=== PATIENT | female | born 1985 | race Caucasian/White ===

== ENCOUNTER 2020-12-16 18:56 | Emergency (ER) | payer OTHER, SELFPAY ==
--- NOTE | 2020-12-16 | ECG_ITS ---
Test Reason : BACK PAIN Blood Pressure : / mmHG Vent. Rate : 075 BPM Atrial Rate : 075 BPM P-R Int : 160 ms QRS Dur : 072 ms QT Int : 410 ms P-R-T Axes : -06 017 030 degrees QTc Int : 457 ms Normal sinus rhythm Normal ECG When compared with ECG of 08-MAR-2019 12:40, No significant change was found Referred By: Generic ED Physician Electronically Signed By:TIFFANIE VAIL
[2020-12-16 19:00] VITALS: BP 132/80; PULSE 80; RESP 18; TEMP 36.9; O2SAT 98; BMI 27.4
== END 2020-12-16 21:01 | disposition left against medical advice (07) ==
PROVIDERS: Emergency Provider Emergency Medicine; PCP Internal Medicine
DX: R07.9 Chest pain, unspecified (principal)
CPT/HCPCS: 93005; 99283

== ENCOUNTER 2021-11-20 07:43 | Outpatient (REF) | payer OTHER, SELFPAY ==
--- NOTE | ~2021-11-20 | XR_ITS ---
EXAMINATION: XR FINGER, RIGHT CLINICAL INFORMATION: Pain COMPARISON: None TECHNIQUE: Three views of the right second finger. FINDINGS: The bones and soft tissues are normal. No fracture. Alignment is anatomic. Joint spaces are maintained. XR/XR finger RT min 2V IMPRESSION: Normal finger radiographs.
[2021-11-20 07:55] LABS: MANUAL DIFF FLAG NO
[2021-11-20 08:16] LABS: Basophils Percent Auto 0.5 % (0-2); Eosinophils Absolute Auto 0.3 X10*3/uL (0.0-0.4); Eosinophils Percent Auto 3.9 % (0-4); Hematocrit 43.7 % (37.0-47.0); Hemoglobin 14.7 g/dl (12.0-16.0); Imm Gran Abs Auto 0.02 X10*3/uL (0.00-0.03); Imm Gran Pct Auto 0.2 % (0.0-0.4); Lymphocytes Absolute Auto 2.5 X10*3/uL (1.2-4.9); Lymphocytes Percent Auto 30.5 % (20-40); Mean Corpuscular HGB Conc 33.6 g/dl (31.0-35.0); Mean Corpuscular Hemoglobin 30.5 pg (27.0-33.0); Mean Corpuscular Volume 90.7 fL (80.0-98.0); Mean Platelet Volume 11.3 fL (9.4-12.3); Monocytes Absolute Auto 0.6 X10*3/uL (0.1-1.2); Monocytes Percent Auto 7.1 % (2-11); Neutrophils Absolute Auto 4.7 x10*3/uL (2.0-8.3); Neutrophils Percent Auto 57.8 % (45-73); Platelet Count 270 X10*3/uL (160-400); Red Blood Count 4.82 X10*6/uL (4.20-5.50); Red Cell Distribution Width 12.3 % (11.0-16.0); White Blood Count 8.2 X10*3/uL (4.8-10.8)
[2021-11-20 08:51] LABS: Alanine Aminotransferase 11 U/L (0-31); Albumin Level 4.3 g/dL (3.5-5.0); Alkaline Phosphatase 57 U/L (39-117); Anion Gap 11 (12-20); Aspartate Amino Transferase 17 U/L (5-31); Bilirubin Total 0.5 mg/dL (0.0-1.0); Blood Urea Nitrogen 11 mg/dL (9-16); Calcium 9.4 mg/dL (8.4-10.2); Carbon Dioxide 24 mmol/L (22-29); Chloride 110 mmol/L (96-108); Cholesterol 191 mg/dL; Estimated Glomerular Filt Rate > 60; Glucose Fasting 91 mg/dL (60-99); HDL Cholesterol 50 mg/dL; LDL Cholesterol Calculated 114 mg/dl; Potassium 4.5 mmol/L (3.3-5.1); Sodium 140 mmol/L (135-145); Total Protein 7.1 g/dL (6.5-8.0); Triglycerides 137 mg/dL
[2021-11-20 09:03] LABS: TSH reflex Free T4 0.86 uIU/mL (0.32-4.0)
== END 2021-11-20 07:44 | disposition home or self-care (01) ==
LOC: HO.LAB 07:43
PROVIDERS: PCP Internal Medicine; Visit Provider Nurse Practitioner Family
DX: Z00.00 Encounter for general adult medical examination without abnormal findings (principal); M79.644 Pain in right finger(s); E66.3 Overweight; I10 Essential (primary) hypertension; E78.00 Pure hypercholesterolemia, unspecified
CPT/HCPCS: 36415; 73140; 80053; 80061; 84443; 85025

== ENCOUNTER 2022-08-01 09:20 | Emergency (ER) | payer OTHER, SELFPAY ==
--- NOTE | 2022-08-01 | ECG_ITS ---
Test Reason : asthma Blood Pressure : / mmHG Vent. Rate : 099 BPM Atrial Rate : 099 BPM P-R Int : 142 ms QRS Dur : 068 ms QT Int : 362 ms P-R-T Axes : 079 061 011 degrees QTc Int : 464 ms Normal sinus rhythm Normal ECG When compared with ECG of 16-DEC-2020 19:13, No significant change was found Referred By: Generic ED Physician Electronically Signed By:David Jordan
--- NOTE | ~2022-08-01 | XR_ITS ---
EXAMINATION: XR CHEST CLINICAL INFORMATION: Shortness of breath. COMPARISON: Chest radiograph 03/08/2019. TECHNIQUE: 2 views of the chest were obtained. FINDINGS: No significant abnormality is noted involving the heart, lungs, mediastinum, bony thorax or soft tissues. XR/XR chest 2V IMPRESSION: Unremarkable examination.
[2022-08-01 09:23] VITALS: BP 132/86; PULSE 117; RESP 22; TEMP 36; O2SAT 98; BMI 28.5
--- NOTE | 2022-08-01 09:56 | ED.GENADULT ---
HPI - General Adult General Chief complaint: Dyspnea Stated complaint: Asthma Time Seen by Provider: 08/01/22 09:54 Source: patient Mode of arrival: ambulatory Limitations: no limitations History of Present Illness HPI narrative: Patient is a 36 year old assigned female at with a history of asthma presenting to the emergency department today with wheezing and sinus congestion. Patient states that over the last week she has felt generally unwell with increased wheezing and sinus pressure / congestion. Patient states that she has a history of asthma but does not currently have any inhalers at home. Patient denies any dizziness, lightheadedness, abdominal pain, nausea, vomiting, fever, chills, blurry vision, double vision, loss of vision, chest pain, difficulty breathing, shortness of breath, back pain, night sweats, pain with urination, increased urinary frequency, increased urinary urgency, blood in her urine or stool, syncope or a near syncopal episode, recent trauma or falls, bowel incontinence, bladder incontinence, bowel retention, bladder retention, or any other complaints at this time. Onset (ago): week(s) (1) Severity: mild Severity scale (1-10): 2 Relieving factors: none Exacerbating factors: none Treatments prior to arrival: none Related Data Previous Rx's Medication Instructions Recorded magnesium 200 mg tablet 200 mg PO DAILY #30 tabs 11/18/21 riboflavin (vitamin B2) 400 mg 400 mg PO DAILY #30 tabs 11/18/21 tablet simethicone 80 mg chewable tablet 80 mg PO BID-TID PRN abdominal 11/18/21 (Gas Relief 80 (simethicone)) distention #20 tabs albuterol sulfate 90 mcg/actuation 1 inh inhalation QID PRN shortness 08/01/22 aerosol inhaler of breath or wheezing #8.5 grams doxycycline hyclate 100 mg tablet 100 mg PO BID 7 days #14 tabs 08/01/22 prednisone 20 mg tablet 20 mg PO DAILY 7 days #7 tabs 08/01/22 Allergies Allergy/AdvReac Type Severity Reaction Status Date / Time No Known Allergies Allergy Verified 11/18/21 15:13 [No Known Allergies*] Review of Systems Constitutional: Constitutional: Reports no additional constitutional complaints, Denies chills, Denies fever(s) and Denies night sweats Eyes: Eyes: Reports no additional eye complaints, Denies blurry vision, Denies change in vision, Denies diplopia, Denies eye discharge, Denies loss of vision and Denies eye pain ENT: Denies dizziness Comments: sinus congestion / pressure Cardiovascular: Cardiovascular: Reports no additional cardiovascular complaints, Denies chest pain, Denies lightheadedness, Denies Loss of Consciousness and Denies dyspnea Respiratory: Respiratory: Reports no additional respiratory complaints, Denies dyspnea and Reports wheezing Gastrointestinal: Gastrointestinal: Reports no additional gastrointestinal complaints, Denies abdominal pain, Denies melena, Denies hematochezia, Denies change in bowel habits and Denies change in stool character Genitourinary: Genitourinary: Denies hematuria, Denies urinary frequency, Denies dysuria, Denies urinary incontinence, Denies urinary hesitancy and Denies urinary urgency Musculoskeletal: Musculoskeletal: Reports no additional musculoskeletal complaints, Denies numbness and Denies tingling Neurologic: Denies dizziness, Denies loss of vision, Denies numbness and Denies tingling Psychiatric: Psychiatric: Reports no additional psychiatric complaints Endocrine: Endocrine: Reports no additional endocrine complaints Hematologic/Lymphatic: Hematologic/Lymphatic: Reports no additional hematologic/lymphatic complaints Allergic/Immunologic: Allergic/Immunologic: Reports no additional allergic/immunologic complaints and Reports wheezing PMFSH Past Medical History Attestation statement: The following information was validated with the patient. Source: old records reviewed and nursing notes reviewed Medical History Abdominal gas pain Hyperhidrosis Mild asthma Overweight Surgical History No pertinent past surgical history Family History Family History Mother Diabetes Stroke Father Thyroid disease Social History Social History Housing: Apartment Alcohol intake: never Patient Tobacco Use Status: Current everyday Tobacco user Tobacco use type: Cigarette Cigarettes Per Day: 10 e-Cigarette/Vaping Use: Never Used Second Hand Smoke Exposure: No Advance Directives: No Advance Directives Information Provided: No service: No Current occupational status: employed Current occupational exposures/hazards: No Cognitive needs: No Hearing needs: No Vision needs: No Physical Exam ED Vital Signs: Vital Signs - 24 hr 08/01/22 09:23 Temperature 96.8 F Pulse Rate 117 H Respiratory Rate 22 H Blood Pressure 132/86 Pulse Oximetry 98 Oxygen Delivery Method Room Air BMI result Body Mass Index 28.5 Const General: cooperative, no acute distress, alert and awake Nutritional Appearance: well nourished Orientation/consciousness: patient oriented x3 Limitations: no limitations HENMT Head: Yes normal to inspection and Yes atraumatic Ears: hearing grossly normal bilaterally and external ears normal General nose exam: Normal external nose present, no nasal discharge noted and no epistaxis Face and sinus: Yes normal facial exam, No abrasion and No laceration Mouth: Normal oral and palatal mucosa present, no drooling and no muffled voice Eyes General: appearance normal, both eyes and all related structures Periorbital: periorbital findings normal Eyelids: Yes eyelids normal Conjunctivae: conjunctivae normal Pupils: Equal, round and reactive pupils present EOM: EOMs intact bilaterally Neck Neck: Yes normal visual inspection, Yes full ROM and Yes no lymphadenopathy Chest Chest palpation & inspection: normal inspection of the chest Resp Effort & Inspection: normal respiratory effort and able to speak in complete sentences Auscultation: wheezes throughout Cardio Rate: tachycardic Rhythm: regular rhythm GI Inspection: Yes normal to inspection Palpation (GI): Soft to palpation, not firm, nontender, no guarding and not rigid Neuro General: patient oriented x3 and moves all extremities Cranial nerves: Yes Equal, round and reactive pupils present Cognition (Neuro): normal cognition Motor exam (neuro): 5/5 motor strength present throughout Sensory Exam: Normal double simultaneous stimulation for sensation Coordination: alybig-gk-oklw test normal Extrem General: Yes normal to inspection, Yes full ROM and Yes capillary refill normal Psych Appearance: grossly normal Mental Status: mental status grossly normal Affect: normal affect Attitude: cooperative Thought process: Normal thought process present Thought content: Normal thought content present Insight: Good insight present (Psych) Medications Administered Discontinued Medications Generic Name Dose Route Start Last Admin Trade Name Freq PRN Reason Stop Dose Admin Albuterol Sulfate 7.5 mg/ 0 mg 08/01/22 09:56 08/01/22 10:12 Ipratropium [place] 0.5 mg INHALE 08/01/22 09:57 2.5 each ONCE ONE Administration Methylprednisolone Sodium Succinate 60 mg 08/01/22 09:56 08/01/22 10:49 Methylprednisolone Sod Succ 125 Mg/2 Ml Vial IM 08/01/22 09:57 60 mg ONCE ONE Administration Medical Decision Making Medical Decision Making MDM Narrative: Patient is a 36 year old assigned female at with a history of asthma presenting to the emergency department today with nasal congestion / sinus pain and wheezing. Patient's physical exam showed wheezing throughout and sinus pressure. Patient's chest x-ray showed no acute process. I explained my physical exam findings as well as all test results to the patient. I answered all questions asked by the patient. Patient received IM Solu-Medrol and a breathing treatment which she stated helped her symptoms significantly. I stressed the importance of the patient taking her medication as prescribed. I stressed the importance of the patient following up with her primary care provider. I stressed the importance of the patient returning to the emergency department immediately if her symptoms were to worsen or if she were to develop any dizziness, shortness of breath, difficulty breathing, chest pain, blurry vision, loss of vision, nausea, vomiting, abdominal pain, fever, chills, back pain, or any other complaints. Patient verbalized agreement and understanding with this treatment plan and discharge. Differential Diagnosis Differential Diagnoses: The differential diagnosis associated with the presentation includes sinusitis, asthma exacerbation Lab Data Labs: Lab Results 08/01/22 Range/Units 09:30 Influenza Type A (PCR) NEGATIVE (Negative) Influenza Type B (PCR) NEGATIVE (Negative) RSV RNA Qual (PCR) NEGATIVE (Negative) SARS-CoV-2 RNA (RT-PCR) NEGATIVE (Negative) Independent Interpretation I performed an independent interpretation of an: Plain X-Ray Interpretation: My interpretation is in agreement with the radiologist's impression of this imaging study. EXAMINATION: XR CHEST CLINICAL INFORMATION: Shortness of breath. COMPARISON: Chest radiograph 03/08/2019. TECHNIQUE: 2 views of the chest were obtained. FINDINGS: No significant abnormality is noted involving the heart, lungs, mediastinum, bony thorax or soft tissues. XR/XR chest 2V IMPRESSION: Unremarkable examination. Dictated By: Jayla Saldivar Signed By: Electronically signed by Jayla?Janna 08/01/22 0953 Discharge Plan Discharge Clinical Impression: Asthma, Sinusitis Patient Disposition: Home, Self-Care Instructions: Asthma (ED), Sinusitis (ED) Additional Instructions: Follow up with your primary care provider. Return to the emergency department immediately if your symptoms worsen or if you develop any dizziness, shortness of breath, difficulty breathing, chest pain, blurry vision, loss of vision, nausea, vomiting, abdominal pain, fever, chills, back pain, or any other complaints. Prescriptions: New prednisone 20 mg tablet 20 mg PO DAILY 7 Days Qty: 7 0RF doxycycline hyclate 100 mg tablet 100 mg PO BID 7 Days Qty: 14 0RF albuterol sulfate 90 mcg/actuation HFA aerosol inhaler 1 inh inhalation QID PRN (Reason: shortness of breath or wheezing) Qty: 8.5 0RF No Action simethicone [Gas Relief 80 (simethicone)] 80 mg tablet,chewable 80 mg PO BID-TID PRN (Reason: abdominal distention) Qty: 20 0RF magnesium 200 mg tablet 200 mg PO DAILY Qty: 30 0RF riboflavin (vitamin B2) 400 mg tablet 400 mg PO DAILY Qty: 30 0RF Referrals: Cassie Hardwick MD [Primary Care Provider] - Stand Alone Forms: Work/School Release Interventions: ED Discharge Assessment Last Done: 08/01/22 11:14 Discharge Date/Time: 08/01/22 11:16 Print Language: Kittitian
[2022-08-01 10:14] LABS: Influenza A PCR NEGATIVE (Negative); Influenza B PCR NEGATIVE (Negative); Resp Syncy Virus RNA Qual PCR NEGATIVE (Negative); SARS COV2 PCR INHOUSE NEGATIVE (Negative)
--- OUTSIDE RECORDS SUMMARY | 2022-08-01 10:35 | XMS_ITS | Continuity of Care Document ---
:1985 Author Organization [facility] Address [address] [place] [address]- Care Team Providers Name Role Phone Connor Ge MD, Cindy Rudd Primary Care Physician Encounter [facility] [place] Date(s): 05/12/20 - 06/11/20 [facility] [address], [place] [address] Attending Physician: Fernandez Renee Admitting Physician: Fernandez Renee Referring Physician: AdmtrFernandez Allergies, Adverse Reactions, Alerts Substance Reaction Severity Status NKA Active Immunizations Given and Recorded Vaccine Date Status Refusal Reason Hepatitis B Vaccine (old term)1 01/13/04 Given Hepatitis B Vaccine (old term)2 07/28/00 Given Measles/Mumps/Rubella Virus Vaccine3 07/28/00 Given Measles/Mumps/Rubella Virus Vaccine4 09/13/89 Given tetanus-diphtheria toxoids (Td)5 06/10/99 Given Poliovirus Vaccine, Inactivated6 04/02/93 Given Poliovirus Vaccine, Inactivated7 09/13/89 Given Poliovirus Vaccine, Inactivated8 04/15/88 Given Poliovirus Vaccine, Inactivated9 02/01/88 Given Diphth/Pertussis, Whl Cell/Tet(oldterm)10 04/02/93 Given Diphth/Pertussis, Whl Cell/Tet(oldterm)11 09/13/89 Given Diphth/Pertussis, Whl Cell/Tet(oldterm)12 10/05/88 Given Diphth/Pertussis, Whl Cell/Tet(oldterm)13 04/15/88 Given Diphth/Pertussis, Whl Cell/Tet(oldterm)14 02/01/88 Given Haemophilus B Conj Vaccine (oldterm)15 07/16/89 Given 1Admin Note: HEP J4Wicia Note: HEP A6Xlvgw Note: JRK4Mrczn Note: ABP0Qgiil Note: RT8Zutnf Note: IPV/XWT3Tqoed Note: IPV/YOW0Ihrbq Note: IPV/QAU6Wblcl Note: IPV/QWF66Krcuk Note: MCO88Hnkqp Note: CKP55Stnbc Note: CIT36Vkiub Note: DTP14 Admin Note: ATL22Nkkyw Note: HIB Medications Amoxicillin By Mouth, Maintenance, 12/24/13 12:42:08 Start Date: 12/24/13 Status: OrderedAzithromycin 5 Day Dose Pack 250 mg oral tablet 1 pack/packet, By Mouth, Once, # 6 tablet, 0 Refills, Soft Stop, 02/07/14 11:09:23, Tablet Start Date: 02/07/14 Status: Ordereddiclofenac sodium 100 mg oral tablet, extended release 1 tablet = 100 mg, By Mouth, Daily, # 14 tablet, 0 Refills, Maintenance, 05/12/20 12:36:00 EST, ER Tablet, [facility]/pharmacy #[id number], Partial fill upon patient request if the prescription is for a schedule IIopioid drug., 168, cm, 05/12/20 12:21:00 EST, Hei... Start Date: 05/12/20 Stop Date: 05/26/20 Status: Ordered Problem List No Known Problems
--- OUTSIDE RECORDS SUMMARY | 2022-08-01 10:35 | XMS_ITS | Continuity of Care Document ---
:1985 Author Organization [facility] Address [address] [place] [address]- Care Team Providers Name Role Phone Connor Ge MD, Cindy Rudd Primary Care Physician Encounter [facility] [place] Date(s): 05/12/20 - 05/19/20 [facility] [address] [place], [place] [address] Attending Physician: Shana Fitzpatrick MD Referring Physician: Cindy Hardwick MD Allergies, Adverse Reactions, Alerts Substance Reaction Severity [...] Vaccine (oldterm)15 07/16/89 Given 1Admin Note: HEP H6Oqmaw Note: HEP P6Xedsh Note: FTG3Uzfcn Note: TRF4Pvyck Note: ON2Npsyl Note: IPV/RHJ9Ytgzv Note: IPV/UYX1Fjvrh Note: IPV/QSN7Wjoqa Note: IPV/KKV69Fzzbq Note: YLH27Orucc Note: QWZ94Ogtfe Note: YMB40Mgeey Note: DTP14 Admin Note: QMV67Imhyq Note: HIB Medications Amoxicillin By Mouth, Maintenance, [...] Refills, Maintenance, 05/12/20 12:36:00 EST, ER Tablet, [facility]/pharmacy #[id number], Partial fill upon patient request if the prescription is for a schedule IIopioid drug., 168, cm, 05/12/20 12:21:00 EST, Hei... Start Date: 05/12/20 Stop Date: 05/26/20 Status: Ordered Problem List No Known Problems Vital Signs Most recent to oldest [Reference Range]: 1 Height 168 cm (05/12/20 12:21 PM) Weight 77.7 kg (05/12/20 12:21 PM) Oxygen Saturation [94-100 %] 100 % (05/12/20 12: PM) Pulse Rate [55-90 bpm] 76 bpm (05/12/20 12:21 PM) Body Mass Index [18.5-24.99] 27.53 *H* (05/12/20 12: PM) Blood Pressure [90-138/55-84 mm Hg] 116/63 mm Hg (05/12/20 12:21 PM) Respiratory Rate [16-30 br/min] 16 br/min (05/12/20 12:21 PM) Temperature [96.8-100.4 DegF] 97.5 DegF (05/12/20 12: PM) Mode of Delivery (Oxygen) Room air (05/12/20 12:21 PM) Blood pressure sites Arm, right (05/12/20 12:21 PM) Temperature Route Temporal (05/12/20 12:21 PM) Dry Weight 77.7 kg (05/12/20 12:21 PM) Weight Obtained Via Standing scale (05/12/20 12:21 PM) Dry Weight Obtained Via Standing scale (05/12/20 12:21 PM)
[2022-08-01] MEDS: methylPREDNISolone Sod Succ 125 MG/2 ML VIAL 60 MG IM (10:49)
== END 2022-08-01 11:16 | disposition home or self-care (01) ==
PROVIDERS: Emergency Provider Student in an Organized Health Care Education/Training Program; PCP Internal Medicine
DX: J45.909 Unspecified asthma, uncomplicated (principal); R06.02 Shortness of breath; R09.81 Nasal congestion; F17.210 Nicotine dependence, cigarettes, uncomplicated; Z20.822 Contact with and (suspected) exposure to COVID-19; Z20.828 Contact with and (suspected) exposure to other viral communicable diseases; Z71.6 Tobacco abuse counseling; Z79.899 Other long term (current) drug therapy
CPT/HCPCS: 0241U; 71046; 93005; 96372; 99283; 99284; J2930

== ENCOUNTER 2022-08-10 11:25 | Outpatient (REF) | payer OTHER, SELFPAY ==
[2022-08-10 11:33] LABS: MANUAL DIFF FLAG NO
[2022-08-10 12:28] LABS: Basophils Percent Auto 0.3 % (0-2); Eosinophils Absolute Auto 0.1 X10*3/uL (0.0-0.4); Eosinophils Percent Auto 0.8 % (0-4); Hematocrit 46.5 % (37.0-47.0); Hemoglobin 15.4 g/dl (12.0-16.0); Imm Gran Abs Auto 0.07 X10*3/uL (0.00-0.03); Imm Gran Pct Auto 0.4 % (0.0-0.4); Lymphocytes Absolute Auto 4.2 X10*3/uL (1.2-4.9); Mean Corpuscular HGB Conc 33.1 g/dl (31.0-35.0); Mean Corpuscular Hemoglobin 29.7 pg (27.0-33.0); Mean Corpuscular Volume 89.6 fL (80.0-98.0); Mean Platelet Volume 11.1 fL (9.4-12.3); Monocytes Absolute Auto 1.1 X10*3/uL (0.1-1.2); Monocytes Percent Auto 7.3 % (2-11); Neutrophils Percent Auto 64.2 % (45-73); Platelet Count 335 X10*3/uL (160-400); Red Blood Count 5.19 X10*6/uL (4.20-5.50); Red Cell Distribution Width 12.4 % (11.0-16.0); White Blood Count 15.6 X10*3/uL (4.8-10.8)
[2022-08-12 01:54] LABS: Immunoglobulin E 1073 kU/L (<OR=114)
== END 2022-08-10 11:26 | disposition home or self-care (01) ==
LOC: HO.LAB 11:25
PROVIDERS: PCP Internal Medicine; Visit Provider Internal Medicine
DX: D64.9 Anemia, unspecified (principal); Z88.9 Allergy status to unspecified drugs, medicaments and biological substances
CPT/HCPCS: 36415; 82785; 85025; 86003

== ENCOUNTER 2022-08-17 08:41 | Outpatient (REF) | payer OTHER, SELFPAY ==
[2022-08-17 08:58] LABS: MANUAL DIFF FLAG NO
[2022-08-17 09:23] LABS: Basophils Percent Auto 0.3 % (0-2); Eosinophils Absolute Auto 0.2 X10*3/uL (0.0-0.4); Eosinophils Percent Auto 2.3 % (0-4); Hematocrit 43.3 % (37.0-47.0); Hemoglobin 14.6 g/dl (12.0-16.0); Imm Gran Abs Auto 0.02 X10*3/uL (0.00-0.03); Imm Gran Pct Auto 0.2 % (0.0-0.4); Lymphocytes Absolute Auto 2.1 X10*3/uL (1.2-4.9); Lymphocytes Percent Auto 23.9 % (20-40); Mean Corpuscular HGB Conc 33.7 g/dl (31.0-35.0); Mean Corpuscular Hemoglobin 30.4 pg (27.0-33.0); Mean Platelet Volume 11.6 fL (9.4-12.3); Monocytes Absolute Auto 0.7 X10*3/uL (0.1-1.2); Monocytes Percent Auto 8.6 % (2-11); Neutrophils Absolute Auto 5.6 x10*3/uL (2.0-8.3); Neutrophils Percent Auto 64.7 % (45-73); Platelet Count 243 X10*3/uL (160-400); Red Blood Count 4.81 X10*6/uL (4.20-5.50); Red Cell Distribution Width 12.6 % (11.0-16.0); White Blood Count 8.6 X10*3/uL (4.8-10.8)
== END 2022-08-17 08:42 | disposition home or self-care (01) ==
LOC: HO.LAB 08:41
PROVIDERS: PCP Internal Medicine; Visit Provider Internal Medicine
DX: D64.9 Anemia, unspecified (principal)
CPT/HCPCS: 36415; 85025

== ENCOUNTER 2022-12-05 08:23 | Outpatient (AMB) | payer OTHER, SELFPAY ==
[2022-12-05 08:27] VITALS: BP 110/72; BMI 28.4
--- NOTE | 2022-12-05 08:27 | MHC.PC.OV ---
Vital Signs 12/05/22 08:27 Height 5 ft 6 in Weight 176 lb BMI 28.4 BP 110/72 Blood Pressure Location Lt brachial Position Sitting Intake Visit Reasons: Annual Exam Intake Note: Patient here for a physical exam Cruise Agent Required: No Accompanied by: Self / Same As Patient Allergies No Known Allergies [No Known Allergies*] Allergy (Verified 12/05/22 08:40) Medication List - Last Reconciled 12/05/22 by Cassie Ge MD mometasone 50 mcg/actuation (Asmanex HFA) 2 puffs inhalation BID 30 days montelukast 10 mg PO DAILY 90 days Ventolin HFA 90 mcg/actuation (albuterol sulfate) 2 puffs inhalation Q6H PRN 30 days NS Tobacco use date assessed: 08/10/22 Dental Screening Dental Screen Date: 12/05/22 Did you have a dental visit in the last 12 months?: Yes Did you have a dental problem in the last 6 months where you did not have access to dental care?: No Was dental information given to patient?: Patient has dentist HPI HPI Comments History of Present Illness Details This is a 37-year-old female that comes for her physical exam. Pap smear is scheduled for 2022. No chest pain or shortness of breath. No bowel or bladder complaints. Last Tdap was 2012. PFSH Medical History Abdominal gas pain Hyperhidrosis Mild asthma Overweight Surgical History No pertinent past surgical history Family History Mother Diabetes Stroke Father Thyroid disease Social History Housing: Apartment Alcohol intake: never Patient Tobacco Use Status: Current everyday Tobacco user Tobacco use type: Cigarette Cigarettes Per Day: 5 e-Cigarette/Vaping Use: Never Used Second Hand Smoke Exposure: No service: No Current occupational status: employed Current occupational exposures/hazards: No Cognitive needs: No Hearing needs: No Vision needs: No Questionnaire Thrive Questionnaire Date Thrive assessed: 08/10/22 GELA-7 AMB Questionnaire GELA-7 Date GELA - 7 assessed: 08/10/22 Source: Developed by Drs. Som Simmons, Carmen Tran, Amrit Nichole and colleagues, with an educational leia from [employer]. Review of Systems Const All systems reviewed & are unremarkable except as noted in HPI and below Eyes Reports no additional complaints, Denies change in vision and Denies other visual disturbances Card Denies chest pain at rest, Denies chest pain with activity, Denies edema, Denies irregular heart rhythm, Denies claudication, Denies dyspnea, Denies dyspnea on exertion, Denies orthopnea, Denies paroxysmal nocturnal dyspnea and Denies slow heart rate Resp Denies cough, Denies dyspnea and Denies dyspnea on exertion GI Denies abdominal pain, Denies change in bowel habits, Denies excessive flatus, Denies nausea and Denies vomiting Denies urinary incontinence, Denies urinary hesitancy and Denies urinary urgency Musc Denies abnormal gait, Denies atrophy, Denies deformity and Denies limited range of motion Skin/Breast Denies bleeding lesions, Denies changing lesions and Denies rash Neuro Denies abnormal gait, Denies confusion and Denies lack of coordination Psych Denies confusion Physical exam (Primary Care) Vital Signs: Last Vital Signs BP 110/72 12/05/22 08:27 BMI result Body Mass Index 28.4 Tobacco/Smoking Status: Tobacco use Status Tobacco use date assessed 08/10/22 12/05/22 08:31 Patient Tobacco Use Status Current everyday Tobacco 12/05/22 08:31 Tobacco use type Cigarette 12/05/22 08:31 e-Cigarette/Vaping Use Never Used 12/05/22 08:31 Thrive Assessment: Date of Thrive Assessment Date Thrive assessed 08/10/22 12/05/22 08:31 Const General: No confusion Orientation/consciousness: patient oriented x3 and No confusion HENMT Head: Yes normal to inspection, Yes normocephalic and Yes atraumatic Ears: external ears normal Eyes General: appearance normal, both eyes and all related structures Eyelids: Yes eyelids normal Conjunctivae: conjunctivae normal Neck Neck: Yes normal visual inspection and Yes supple Resp Effort & Inspection: normal respiratory effort Auscultation: clear to auscultation bilaterally Cardio Jugular venous distension: no JVD Rate: regular rate Rhythm: regular rhythm Heart sounds: S1 normal heart sound present and S2 normal heart sound present GI Inspection: Yes normal to inspection Palpation (GI): Soft to palpation and nontender Auscultation: normal bowel sounds Skin General skin exam: no rashes or lesions noted Neuro General: patient oriented x3, no focal motor deficits and No confusion Extrem General: Yes full ROM Psych Appearance: grossly normal Immunizations Boostrix Tdap Performing Provider: Cassie Ge MD Administered by: DEYANIRA Polo on 12/05/22 08:49 Dose Route Admin Location Lot Number Expiration Date [employer] 0.5 mL IM Left Deltoid [id number] 03/01/25 [id number] [employer] VIS Given Date VIS Provided VIS Publication Date 12/05/22 Single Vaccine 20 Eligibility Eligibility Date Funding Source Not [facility] Eligible 12/05/22 Private Assessment and Plan Assessment & Plan (1) Encounter for physical examination: Comment: Due for pap, she will call [facility] [place] for a f/u Due for eye exam Code(s): Z00.00 - Encounter for general adult medical examination without abnormal findings Plan: Repeat in a year Orders: Orders Comprehensive [place]. Panel Fast Today Z00.00 - Encounter for general adult medical examination without abnormal findings Lipid Panel Today Z00.00 - Encounter for general adult medical examination without abnormal findings Complete Blood Count Auto Diff Today Z88.9 - Allergy status to unspecified drugs, medicaments and biological substances TDaP Immunization Today Z23 - Encounter for immunization Coding Level of Care Code Est Pt Prev Care 18-39y(07745) Diagnoses Encounter for physical examination Z00.00 Time Spent (min) 31
== END 2022-12-05 08:52 | disposition home or self-care (01) ==
PROVIDERS: PCP Internal Medicine; Visit Provider Internal Medicine
DX: Z00.00 Encounter for general adult medical examination without abnormal findings (principal); Z23 Encounter for immunization
CPT/HCPCS: 90471; 90715; 99395

== ENCOUNTER 2023-01-13 07:45 | Outpatient (REF) | payer OTHER, SELFPAY ==
[2023-01-13 07:53] LABS: MANUAL DIFF FLAG NO
[2023-01-13 08:19] LABS: Basophils Percent Auto 0.4 % (0-2); Eosinophils Absolute Auto 0.2 X10*3/uL (0.0-0.4); Eosinophils Percent Auto 2.2 % (0-4); Hematocrit 45.3 % (37.0-47.0); Hemoglobin 14.9 g/dl (12.0-16.0); Imm Gran Abs Auto 0.02 X10*3/uL (0.00-0.03); Imm Gran Pct Auto 0.2 % (0.0-0.4); Lymphocytes Absolute Auto 2.5 X10*3/uL (1.2-4.9); Lymphocytes Percent Auto 30.4 % (20-40); Mean Corpuscular HGB Conc 32.9 g/dl (31.0-35.0); Mean Corpuscular Hemoglobin 29.9 pg (27.0-33.0); Mean Corpuscular Volume 90.8 fL (80.0-98.0); Mean Platelet Volume 11.5 fL (9.4-12.3); Monocytes Absolute Auto 0.6 X10*3/uL (0.1-1.2); Monocytes Percent Auto 7.1 % (2-11); Neutrophils Absolute Auto 4.9 x10*3/uL (2.0-8.3); Neutrophils Percent Auto 59.7 % (45-73); Platelet Count 279 X10*3/uL (160-400); Red Blood Count 4.99 X10*6/uL (4.20-5.50); Red Cell Distribution Width 12.2 % (11.0-16.0); White Blood Count 8.2 X10*3/uL (4.8-10.8)
[2023-01-13 09:00] LABS: Alanine Aminotransferase 7 U/L (0-31); Albumin Level 4.3 g/dL (3.5-5.0); Alkaline Phosphatase 67 U/L (39-117); Anion Gap 11 (12-20); Aspartate Amino Transferase 15 U/L (5-31); Bilirubin Total 0.4 mg/dL (0.0-1.0); Blood Urea Nitrogen 13 mg/dL (9-16); Calcium 9.7 mg/dL (8.4-10.2); Carbon Dioxide 26 mmol/L (22-29); Chloride 109 mmol/L (96-108); Cholesterol 196 mg/dL (<200); Estimated Glomerular Filt Rate > 60; Glucose Fasting 86 mg/dL (60-99); HDL Cholesterol 53 mg/dL (>40); LDL Cholesterol Calculated 120 mg/dL (<100); Potassium 4.1 mmol/L (3.3-5.1); Sodium 142 mmol/L (135-145); Total Protein 7.6 g/dL (6.5-8.0); Triglycerides 117 mg/dL (<150)
== END 2023-01-13 07:46 | disposition home or self-care (01) ==
LOC: HO.LAB 07:45
PROVIDERS: PCP Internal Medicine; Visit Provider Internal Medicine
DX: Z00.00 Encounter for general adult medical examination without abnormal findings (principal); Z88.9 Allergy status to unspecified drugs, medicaments and biological substances
CPT/HCPCS: 36415; 80053; 80061; 85025

== ENCOUNTER 2023-02-23 12:49 | Outpatient (AMB) | payer OTHER, SELFPAY ==
[2023-02-23 12:57] VITALS: BP 110/56; BMI 28.1
--- NOTE | 2023-02-23 12:57 | MHC.OFFVIS ---
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 Doing well with no contract runner concerns. She admits to eating healthy and tries to stay active with exercise. Currently sexually active with female partner. Reports regular menses; 3/4 days are heavy. Denies vaginal itching and irritation. STD screening offered; she accepts. Denies family hx of breast, colon and ovarian cancer. Last pap smear 01/02/19. Admits to still smoking about 5 cigarettes a day especially when stressed. [facility] Medical History Heavy menstrual bleeding Smoker Overweight Abdominal gas pain Mild asthma Hyperhidrosis Surgical History No pertinent past surgical history Family History Mother Diabetes Stroke Father Thyroid disease Social History Housing: Apartment Alcohol intake: never Patient Tobacco Use Status: Current everyday Tobacco user Tobacco use type: Cigarette Cigarettes Per Day: 5 e-Cigarette/Vaping Use: Never Used Second Hand Smoke Exposure: No service: No Current occupational status: employed Current occupational exposures/hazards: No Cognitive needs: No Hearing needs: No Vision needs: No Female Reproductive History Menstrual Age of Menarche: 13 Duration of menses: 3-5 days Date of last menstrual period: 02/09/23 control method: none Total pregnancies: 2 Full term: 2 Number of Living Children: 2 Date of last pap smear: 01/02/19 (negative) Physical Exam Vital Signs: Last Vital Signs BP 110/56 L 02/23/23 12:57 BMI result Body Mass Index 28.1 Const General: cooperative, healthy appearing, no acute distress, well developed and alert Orientation/consciousness: patient oriented x3 HEENT Head: Yes normal to inspection Eyes General: appearance normal, both eyes and all related structures Neck Neck: Yes normal visual inspection Thyroid: Thyroid normal Chest Chest palpation & inspection: normal inspection of the chest Breast/axilla inspection: normal inspection of the breasts (no puckering, dimpling, peau de orange, retraction, discharge, masses) Breast/axilla palpation: normal palpation of the breasts Resp Effort & Inspection: normal respiratory effort GI Inspection: Yes normal to inspection Palpation (GI): Soft to palpation (to palpation) Rectal Exam - Female: deferred General: Yes bladder normal to inspection External Female Exam: normal external appearance and normal appearance of the urethra Speculum Exam - Vagina: normal appearance of the vagina, normal palpation and normal vaginal discharge Speculum Exam - Cervix: normal appearance of the cervix, normal palpation and Other cervical findings present (bled slightly with pap.) Bimanual exam- vagina & uterus: normal palpation and normal palpation Bimanual Exam- Adnexa, other: normal adnexae and no masses Skin General skin exam: no rashes or lesions noted Neuro General: patient oriented x3 Cognition (Neuro): normal cognition Extrem General: Yes normal to inspection Psych Attitude: cooperative Thought process: Normal thought process present Assessment & Plan Assessment & Plan (1) Encounter for well woman exam: Code(s): Z01.419 - Encounter for gynecological examination (general) (routine) without abnormal findings Plan: Discussed: Current recommendations for pap smears per ASCCP guidelines. Breast awareness and periodic self breast exams. Maintaining a healthy lifestyle including a well balanced diet and routine exercise. All of her questions and concerns were addressed to the best of my ability. She is agreeable to plan of care. RTO in one year for AG. (2) Smoker: Code(s): F17.200 - Nicotine dependence, unspecified, uncomplicated Plan: Encourage to lower tobacco intake then quit. Advised to take up a hobby, take walks or try other stress relieving activities. (3) Heavy menstrual bleeding: Code(s): N92.0 - Excessive and frequent menstruation with regular cycle Plan: Labs ordered; labs taken at [facility] per pt request. Orders: Orders US pelvic and transvaginal Today N92.0 - Excessive and frequent menstruation with regular cycle Thyroid Stimulating Hormone Today N92.0 - Excessive and frequent menstruation with regular cycle Bacterial Vaginosis Panel Today Z20.2 - Contact with and (suspected) exposure to infections with a predominantly sexual mode of transmission CT NG by PCR Today Z20.2 - Contact with and (suspected) exposure to infections with a predominantly sexual mode of transmission Pap Smear Today N92.0 - Excessive and frequent menstruation with regular cycle Quality Reporting (2019) Adult ([facility] 138/07/13/68) Smoking risk assessment performed?: Yes Patient Tobacco Use Status: Current everyday Tobacco user Coding Level of Care Code Est Pt Prev Care 18-39y(82168) Diagnoses Encounter for well woman exam Z01.419 Smoker F17.200 Heavy menstrual bleeding N92.0
== END 2023-02-23 14:01 | disposition home or self-care (01) ==
PROVIDERS: PCP Internal Medicine; Visit Provider Advanced Practice Midwife
DX: Z01.419 Encounter for gynecological examination (general) (routine) without abnormal findings (principal); F17.200 Nicotine dependence, unspecified, uncomplicated; N92.0 Excessive and frequent menstruation with regular cycle
CPT/HCPCS: 99395

== ENCOUNTER 2023-02-23 12:49 | Outpatient (REF) | payer OTHER, SELFPAY | END 2023-02-23 12:50 | disposition home or self-care (01) | LOC: HO.LNP 12:49 | PROVIDERS: PCP Internal Medicine; Visit Provider Advanced Practice Midwife | DX: Z01.419 Encounter for gynecological examination (general) (routine) without abnormal findings (principal); N92.0 Excessive and frequent menstruation with regular cycle; F17.210 Nicotine dependence, cigarettes, uncomplicated; Z71.6 Tobacco abuse counseling; Z20.2 Contact with and (suspected) exposure to infections with a predominantly sexual mode of transmission | CPT/HCPCS: 0353U; 87480; 87510; 87624; 87660; 88142; 99395 ==

== ENCOUNTER 2023-03-09 13:15 | Outpatient (REF) | payer OTHER, SELFPAY ==
--- NOTE | ~2023-03-09 | US_ITS ---
EXAMINATION: US PELVIS COMPLETE CLINICAL INFORMATION: Excessive and frequent menstruation COMPARISON: None TECHNIQUE: Transabdominal and transvaginal imaging was performed. FINDINGS: The uterus is of normal size and echogenicity measuring 8.0 x 3.8 x 4.8 cm. A regular homogeneous endometrium is identified measuring 0.7 cm. Both ovaries are of normal size and echogenicity. The right measures 3.5 x 2.2 x 2.4 cm. The left measures 3.3 x 1.7 x 1.8 cm. There is no pelvic free fluid. US/US pelvic and transvaginal IMPRESSION: Unremarkable pelvic ultrasound.
== END 2023-03-09 13:16 | disposition home or self-care (01) ==
LOC: HO.US 13:15
PROVIDERS: PCP Internal Medicine; Visit Provider Advanced Practice Midwife
DX: N92.0 Excessive and frequent menstruation with regular cycle (principal)
CPT/HCPCS: 76830; 76856

== ENCOUNTER 2023-03-30 12:49 | Outpatient (AMB) | payer OTHER, SELFPAY ==
--- NOTE | 2023-03-30 12:49 | MHC.OFFVIS ---
Intake Intake Visit Reasons: TV Ultra sound follow up Intake Note: cell # [phone] Scribed for Riya Avila CNM by Monica Quintanilla medical unit secretary, on 03/30/2023 at 12:57 PM, EST Allergies No Known Allergies [No Known Allergies*] Allergy (Verified 03/30/23 12:49) HPI HPI Comments History of Present Illness Details D[employer]ity live video 12:54-13:06. Patient presents for a live video call due to the Covid 19 Pandemic. Failed video, converted to phone call only. The call is to discuss: The patient is a 37 year old premenopausal woman who presents via phone to discuss ultrasound results due to heavy menstrual bleeding. Discussed with the patient in detail most recent ultrasound, normal. [facility] Medical History Heavy menstrual bleeding Smoker Overweight Abdominal gas pain Mild asthma Hyperhidrosis Surgical History No pertinent past surgical history Family History Mother Diabetes Stroke Father Thyroid disease Social History Housing: Apartment Alcohol intake: never Patient Tobacco Use Status: Current everyday Tobacco user Tobacco use type: Cigarette Cigarettes Per Day: 5 e-Cigarette/Vaping Use: Never Used Second Hand Smoke Exposure: No service: No Current occupational status: employed Current occupational exposures/hazards: No Cognitive needs: No Hearing needs: No Vision needs: No Female Reproductive History Menstrual Age of Menarche: 13 Results Reviewed Results Reviewed: Ordering Physician: Riya Avila CNM Date of Service: 03/09/23 Procedure(s): US pelvic and transvaginal Accession Number(s): [id number] cc: Riya Avila CNM; Cassie Hardwick MD~ EXAMINATION: US PELVIS COMPLETE CLINICAL INFORMATION: Excessive and frequent menstruation COMPARISON: None TECHNIQUE: Transabdominal and transvaginal imaging was performed. FINDINGS: The uterus is of normal size and echogenicity measuring 8.0 x 3.8 x 4.8 cm. A regular homogeneous endometrium is identified measuring 0.7 cm. Both ovaries are of normal size and echogenicity. The right measures 3.5 x 2.2 x 2.4 cm. The left measures 3.3 x 1.7 x 1.8 cm. There is no pelvic free fluid. US/US pelvic and transvaginal IMPRESSION: Unremarkable pelvic ultrasound. Assessment & Plan Assessment & Plan (1) Heavy menstrual bleeding: Code(s): N92.0 - Excessive and frequent menstruation with regular cycle Plan: Discussed: Ultrasound findings. Pt. to call [facility] for her lab results Not interested in cycle control for now. Declines need for BC. Expectant management: observe bleeding. Call for further evalutation if menses <3 weeks apart or heavy/prolonged bleeding. RTO for Annual, prn All of her questions and concerns were addressed to the best of my ability and shared decision making. She is agreeable to the plan of care. (2) Encounter to discuss test results: Code(s): Z71.2 - Person consulting for explanation of examination or test findings Plan Discussed: Quality Reporting (2019) Adult ([facility] 138/07/13/68) Smoking risk assessment performed?: Yes Patient Tobacco Use Status: Current everyday Tobacco user Telehealth Telehealth Location of provider rendering services: practice address Location of patient: address on file Patient Identification confirmed using: Name, : Yes Telehealth method: video Patient verbally consented to treatment: Yes Patient verbally consented to billing insurance company: Yes Patient informed of any privacy concerns related to visit: Yes Coding Level of Care Code Est Pt Level 3 (43231) Diagnoses Heavy menstrual bleeding N92.0 Encounter to discuss test results Z71.2
== END 2023-03-30 13:32 | disposition home or self-care (01) ==
LOC: HO.HWS 12:49
PROVIDERS: PCP Internal Medicine; Visit Provider Advanced Practice Midwife
DX: N92.0 Excessive and frequent menstruation with regular cycle (principal); Z71.2 Person consulting for explanation of examination or test findings
CPT/HCPCS: 99213

== ENCOUNTER → 2023-03-30 12:49 | Outpatient (BNVA) | payer OTHER, SELFPAY | PROVIDERS: PCP Internal Medicine; Visit Provider Advanced Practice Midwife | DX: Z71.2 Person consulting for explanation of examination or test findings (principal); N92.0 Excessive and frequent menstruation with regular cycle | CPT/HCPCS: 99212 ==

== ENCOUNTER 2023-08-03 07:55 | Outpatient (REF) | payer OTHER, SELFPAY ==
[2023-08-04 11:37] LABS: CT PCR NOT DETECTED (Not Detect.); NG PCR NOT DETECTED (Not Detect.)
[2023-08-04 13:55] LABS: BV Int Neg Control Negative (Negative); BV Int Pos Control Positive (Positive)
== END 2023-08-03 07:56 | disposition home or self-care (01) ==
LOC: HO.LAB 07:55
PROVIDERS: PCP Internal Medicine; Visit Provider Advanced Practice Midwife
DX: N92.0 Excessive and frequent menstruation with regular cycle (principal); R87.615 Unsatisfactory cytologic smear of cervix; N76.0 Acute vaginitis; B96.89 Other specified bacterial agents as the cause of diseases classified elsewhere; Z20.2 Contact with and (suspected) exposure to infections with a predominantly sexual mode of transmission
CPT/HCPCS: 0353U; 87480; 87510; 87660; 99212

== ENCOUNTER 2023-08-03 07:55 | Outpatient (AMB) | payer OTHER, SELFPAY ==
--- NOTE | 2023-08-03 07:57 | MHC.OFFVIS ---
Intake Vital Signs 08/03/23 07:58 Height 5 ft 6 in Weight 174 lb BMI 28.1 BP 114/76 Intake Visit Reasons: repeat pap Physical Therapy Resident: Physical Therapy Resident Present (Dulce Maria) Allergies No Known Allergies [No Known Allergies*] Allergy (Verified 08/03/23 07:58) Is last menstrual period known: Yes Last menstrual period: 07/21/23 HPI HPI Comments History of Present Illness Details Patient is here today for a repeat Pap due to unsatisfactory sample. History of heavy menses and has decided to try the Mirena IUD. She had delivered her thyroid level on on report from [facility] completed 02/28/2023 the TSH was 0.93. [facility] Medical History Heavy menstrual bleeding Smoker Overweight Abdominal gas pain Mild asthma Hyperhidrosis Surgical History No pertinent past surgical history Family History Mother Diabetes Stroke Father Thyroid disease Social History Housing: Apartment Alcohol intake: never Patient Tobacco Use Status: Current everyday Tobacco user Tobacco use type: Cigarette Cigarettes Per Day: 5 e-Cigarette/Vaping Use: Never Used Second Hand Smoke Exposure: No service: No Current occupational status: employed Current occupational exposures/hazards: No Cognitive needs: No Hearing needs: No Vision needs: No Female Reproductive History Menstrual Age of Menarche: 13 Date of last menstrual period: 07/21/23 Total pregnancies: 2 Full term: 2 Number of Living Children: 2 Date of last pap smear: 02/23/23 (unsat neg hpv) Review of Systems Const All systems reviewed & are unremarkable except as noted in HPI and below Physical Exam Vital Signs: Last Vital Signs BP 114/76 08/03/23 07:58 BMI result Body Mass Index 28.1 Const General: cooperative, healthy appearing and no acute distress Orientation/consciousness: patient oriented x3 GI Inspection: Yes normal to inspection Palpation (GI): Soft to palpation and Other GI palpation findings present (Nontender) Rectal Exam - Female: visual inspection normal General: Yes bladder normal to palpation External Female Exam: normal appearance of the urethra Speculum Exam - Vagina: normal appearance of the vagina, normal palpation and normal vaginal discharge Speculum Exam - Cervix: normal appearance of the cervix, normal palpation and Other cervical findings present (Bled slightly with Pap) Bimanual exam- vagina & uterus: normal bimanual exam, normal palpation, uterine size normal, bladder normal to palpation, normal palpation, uterine shape normal and non-tender Bimanual Exam- Adnexa, other: normal adnexae Neuro General: patient oriented x3 Assessment & Plan Assessment & Plan (1) Heavy menstrual bleeding: Code(s): N92.0 - Excessive and frequent menstruation with regular cycle Qualifiers: Menorrhagia type: with regular cycle Qualified Code(s): N92.0 - Excessive and frequent menstruation with regular cycle (2) Unsatisfactory cervical Papanicolaou smear: Code(s): R87.615 - Unsatisfactory cytologic smear of cervix (3) Possible exposure to STD: Code(s): Z20.2 - Contact with and (suspected) exposure to infections with a predominantly sexual mode of transmission Plan Repeat Pap obtained. Counseled regarding the Mirena IUD placement. Booklet given. Advised to take Motrin 3 tablets with food and fluids 1 hour before procedure. Risks and benefits discussed. Return to the office in the next menstrual cycle within the 1st 5 days, or with no unprotected intimacy for 2 weeks. All of her questions and concerns were addressed to the best of my ability and shared decision making. She is agreeable to the plan of care. This note is constructed using voice recognition software. While every effort has been made to ensure accuracy, cleaner greaser errors may have been included. Quality Reporting (2019) Adult ([facility] 13807/13/68) Smoking risk assessment performed?: Yes Patient Tobacco Use Status: Current everyday Tobacco user Coding Level of Care Code Est Pt Level 3 (40199) Diagnoses Menorrhagia with regular cycle N92.0 Menorrhagia type: with regular cycle Unsatisfactory cervical Papanicolaou smear R87.615 Possible exposure to STD Z20.2
[2023-08-03 07:58] VITALS: BP 114/76; BMI 28.1
== END 2023-08-03 08:31 | disposition home or self-care (01) ==
PROVIDERS: PCP Internal Medicine; Visit Provider Advanced Practice Midwife
DX: N92.0 Excessive and frequent menstruation with regular cycle (principal); R87.615 Unsatisfactory cytologic smear of cervix; Z20.2 Contact with and (suspected) exposure to infections with a predominantly sexual mode of transmission
CPT/HCPCS: 99213

== ENCOUNTER 2023-08-03 08:33 | Outpatient (REF) | payer OTHER, SELFPAY ==
[2023-08-12 09:18] LABS: HPV mRNA E6/E7 rflx Not Detected (Not Detected)
== END 2023-08-03 08:34 | disposition home or self-care (01) ==
LOC: HO.LNP 08:33
PROVIDERS: Visit Provider Advanced Practice Midwife
DX: R87.615 Unsatisfactory cytologic smear of cervix (principal)
CPT/HCPCS: 87624; 88142

== ENCOUNTER 2023-12-07 08:23 | Outpatient (AMB) | payer OTHER, SELFPAY ==
[2023-12-07 08:37] VITALS: BP 118/68; BMI 29.9
--- NOTE | 2023-12-07 08:37 | A.OFFPC_ITS ---
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: No Accompanied by: Self / Same As Patient Allergies No Known Allergies [No Known Allergies*] Allergy (Verified 12/07/23 08:57) Medication List - Last Reconciled 12/07/23 by Cassie Ge MD ibuprofen 800 mg PO Q8H PRN 30 days mometasone 50 mcg/actuation (Asmanex HFA) 2 puffs inhalation BID 30 days montelukast 10 mg PO DAILY 90 days Ventolin HFA 90 mcg/actuation (albuterol sulfate) 2 puffs inhalation Q6H PRN 30 days NS Tobacco use date assessed: 12/07/23 Dental Screening Dental Screen Date: 12/07/23 Did you have a dental visit in the last 12 months?: Yes Did you have a dental problem in the last 6 months where you did not have access to dental care?: No Was dental information given to patient?: Patient has dentist HPI HPI Comments History of Present Illness Details This is a 38-year-old female that comes for her physical exam. Pap smear done 2023 was normal. She is overweight and has tried diet and exercise with no significant improvement. Would like to start Wegovy. Patient was advised of side effects such as abdominal pain and vomiting. [facility] Medical History Heavy menstrual bleeding Smoker Overweight Abdominal gas pain Mild asthma Hyperhidrosis Surgical History No pertinent past surgical history Family History Mother Diabetes Stroke Father Thyroid disease Social History Housing: Apartment Alcohol intake: never Patient Tobacco Use Status: Current everyday Tobacco user Tobacco use type: Cigarette Cigarettes Per Day: 7 e-Cigarette/Vaping Use: Never Used Second Hand Smoke Exposure: No service: No Current occupational status: employed Current occupational exposures/hazards: No Cognitive needs: No Hearing needs: No Vision needs: No Female Reproductive History Menstrual Age of Menarche: 13 Questionnaire PHQ-9 Over the last 2 weeks, how often have you been bothered by any of the following problems? 1. Little interest or pleasure in doing things: not at all 2. Feeling down, depressed, or hopeless: not at all 3. Trouble falling or staying asleep, or sleeping too much: not at all 4. Feeling tired or having little energy: not at all 5. Poor appetite or overeating: not at all 6. Feeling bad about yourself - or that you are a failure or have let yourself or your family down: not at all 7. Trouble concentrating on things, such as reading the newspaper or watching television: not at all 8. Moving or speaking so slowly that other people could have noticed. Or the opposite - being so fidgety or restless that you have been moving around a lot more than usual: not at all 9. Thoughts that you would be better off or of hurting yourself in some way: not at all Total score: 0 Depression Screening Interpretation: Negative Depression Screening Done: Yes 72073 - PHQ-9 Billing: Yes Source: Developed by Drs. Som Simmons, Carmen Tran, Amrit Nichole and colleagues, with an educational leia from [employer]. Thrive Questionnaire Date Thrive assessed: 12/07/23 I am a: Patient What is your living situation today?: I have a steady place to live Within the past 12 months, did the food you bought not last and you didn't have the money to get more?: Never true Within the past 12 months, did you worry whether your food would run out before you got money to buy more?: Never true Do you have trouble paying for medicines?: No Do you have trouble getting transportation to medical appointments?: No Do you have trouble paying your heating and electricity bill?: No Do you have trouble taking care of your child, family member or friend?: No Do you have trouble with day-to-day activities such as bathing, preparing meals, shopping, managing finances, etc.?: No Are you currently unemployed and looking for a job?: No Are you interested in more education?: No Please select the resources that you would like help with: None Currently or been in a relationship where the following occur: No concerns reported THRIVE Score: 0 AUDIT C Alcohol Use Questionnaire (AUDIT-C) 1. How often do you have a drink containing alcohol?: Never Total Score: 0 GELA-7 AMB Questionnaire GELA-7 Date GELA - 7 assessed: 12/07/23 Feeling nervous, anxious, or on edge: 0 = Not at all Not being able to stop or control worryin = Not at all Worrying too much about different things: 0 = Not at all Trouble relaxin = Not at all Being so restless that it is hard to sit still: 0 = Not at all Becoming easily annoyed or irritable: 0 = Not at all Feeling afraid as if something awful might happen: 0 = Not at all Total GELA-7 score (0-4 normal; 5-9 mild; 10-14 moderate; 15-21 severe): 0 Source: Developed by Drs. Som Simmons, Carmen Tran, Amrit Nichole and colleagues, with an educational leia from [employer]. GELA-7 Assessment Billing GELA-7 Assessment Tool: GELA-7 Assessment 73054 Review of Systems Const All systems reviewed & are unremarkable except as noted in HPI and below Card Denies chest pain at rest, Denies chest pain with activity, Denies edema, Denies irregular heart rhythm, Denies claudication, Denies dyspnea, Denies dyspnea on exertion, Denies orthopnea, Denies paroxysmal nocturnal dyspnea and Denies slow heart rate Resp Denies cough, Denies dyspnea and Denies dyspnea on exertion GI Denies abdominal pain, Denies change in bowel habits, Denies excessive flatus, Denies nausea and Denies vomiting Physical exam (Primary Care) Vital Signs: Last Vital Signs BP 118/68 12/07/23 08:37 BMI result Body Mass Index 29.9 Tobacco/Smoking Status: Tobacco use Status Tobacco use date assessed 12/07/23 12/07/23 08:43 Patient Tobacco Use Status Current everyday Tobacco 12/07/23 08:43 Tobacco use type Cigarette 12/07/23 08:43 e-Cigarette/Vaping Use Never Used 12/07/23 08:43 PHQ-9: PHQ-9 Score PHQ-9: Total score 0 12/07/23 09:01 Depression Screening Interpretation: Negative Thrive Assessment: Date of Thrive Assessment Date Thrive assessed 12/07/23 12/07/23 08:43 Currently or been in a relationship where the following occur: No concerns reported HENMT Head: Yes normal to inspection, Yes normocephalic and Yes atraumatic Ears: external ears normal Eyes General: appearance normal, both eyes and all related structures Eyelids: Yes eyelids normal Conjunctivae: conjunctivae normal Neck Neck: Yes normal visual inspection and Yes supple Resp Effort & Inspection: normal respiratory effort Auscultation: clear to auscultation bilaterally Cardio Jugular venous distension: no JVD Rate: regular rate Rhythm: regular rhythm Heart sounds: S1 normal heart sound present and S2 normal heart sound present GI Inspection: Yes normal to inspection Palpation (GI): Soft to palpation and nontender Auscultation: normal bowel sounds Skin General skin exam: no rashes or lesions noted Neuro General: no focal motor deficits Extrem General: Yes full ROM Psych Appearance: grossly normal Assessment and Plan Assessment & Plan (1) Encounter for physical examination: Comment: Due for pap, she will call [facility] for a f/u Due for eye exam Code(s): Z00.00 - Encounter for general adult medical examination without abnormal findings Plan: Repeat in a year. (2) Overweight: Code(s): E66.3 - Overweight Plan: Start Wegovy. Orders: Orders Lipid Panel Today Z00.00 - Encounter for general adult medical examination without abnormal findings Comprehensive [place]. Panel Fast Today Z00.00 - Encounter for general adult medical examination without abnormal findings Thyroid Stimulating Hormone Today E66.3 - Overweight Medications: New semaglutide (weight loss) (Wegovy) administer weeks 1 through 4 of therapy 0.25 mg (0.5 mL) subcut QWEEK 2 mL 0RF 4 weeks E66.3 - Overweight Refilled ibuprofen 800 mg PO Q8H PRN 90 tabs 1RF pain 30 days Coding Level of Care Code Est Pt Level 3 (81486) Est Pt Prev Care 18-39y(18540) Diagnoses Encounter for physical examination Z00.00 Overweight E66.3 Additional Codes GELA-7 Assessment Billing - GELA-7 Assessment Tool: GELA-7 Assessment 06616 ([id number]) Time Spent (min) 32
== END 2023-12-07 09:08 | disposition home or self-care (01) ==
PROVIDERS: PCP Internal Medicine; Visit Provider Internal Medicine
DX: Z00.00 Encounter for general adult medical examination without abnormal findings (principal); E66.3 Overweight; Z68.29 Body mass index [BMI] 29.0-29.9, adult
CPT/HCPCS: 99213; 99395

== ENCOUNTER 2024-02-21 06:33 | Outpatient (REF) | payer OTHER, SELFPAY ==
[2024-02-21 08:24] LABS: Alanine Aminotransferase 14 U/L (0-31); Albumin Level 4.2 g/dL (3.5-5.0); Alkaline Phosphatase 57 U/L (39-117); Anion Gap 12 (12-20); Aspartate Amino Transferase 17 U/L (5-31); Bilirubin Total 0.5 mg/dL (0.0-1.0); Blood Urea Nitrogen 13 mg/dL (9-16); Calcium 9.5 mg/dL (8.4-10.2); Carbon Dioxide 23 mmol/L (22-29); Chloride 111 mmol/L (96-108); Cholesterol 164 mg/dL (<200); Estimated Glomerular Filt Rate > 60; Glucose Fasting 91 mg/dL (60-99); HDL Cholesterol 44 mg/dL (>40); LDL Cholesterol Calculated 97 mg/dL (<100); Potassium 4.2 mmol/L (3.3-5.1); Sodium 142 mmol/L (135-145); Total Protein 7.5 g/dL (6.5-8.0); Triglycerides 119 mg/dL (<150)
[2024-02-21 08:42] LABS: Thyroid Stimulating Hormone 1.08 uIU/mL (0.32-4.0)
[2024-02-21 14:22] LABS: Hematocrit 42.1 % (37.0-47.0); Hemoglobin 14.1 g/dl (12.0-16.0); Mean Corpuscular HGB Conc 33.5 g/dl (31.0-35.0); Mean Corpuscular Hemoglobin 30.2 pg (27.0-33.0); Mean Corpuscular Volume 90.1 fL (80.0-98.0); Mean Platelet Volume 11.7 fL (9.4-12.3); Platelet Count 267 X10*3/uL (160-400); Red Blood Count 4.67 X10*6/uL (4.20-5.50); Red Cell Distribution Width 12.6 % (11.0-16.0); White Blood Count 9.6 X10*3/uL (4.8-10.8)
== END 2024-02-21 06:34 | disposition home or self-care (01) ==
LOC: HO.LAB 06:33
PROVIDERS: Physician Assistant; PCP Internal Medicine; Visit Provider Internal Medicine
DX: Z00.00 Encounter for general adult medical examination without abnormal findings (principal); E66.3 Overweight; J34.89 Other specified disorders of nose and nasal sinuses
CPT/HCPCS: 36415; 80053; 80061; 84443; 85027

== ENCOUNTER 2024-03-04 09:47 | Outpatient (AMB) | payer OTHER, SELFPAY ==
[2024-03-04 09:48] VITALS: BP 118/68; PULSE 90; O2SAT 98; BMI 29.9
--- NOTE | 2024-03-04 09:48 | A.OFFPC_ITS ---
Vital Signs 03/04/24 09:48 Height 5 ft 6 in Weight 185 lb BMI 29.9 BP 118/68 Blood Pressure Location Lt brachial Position Sitting Pulse 90 Pulse Source Pulse Oximeter Pulse Oximetry (%) 98 Oxygen Delivery Method Room Air Intake Visit Reasons: follow up swollen lips and nose possible infection Stock Plan Administrator Required: No Allergies No Known Allergies [No Known Allergies*] Allergy (Verified 03/04/24 09:48) Medication List - Last Reconciled 03/04/24 by Delores Santiago PA-C ibuprofen 800 mg PO Q8H PRN 30 days mometasone 50 mcg/actuation (Asmanex HFA) 2 puffs inhalation BID 30 days Ventolin HFA 90 mcg/actuation (albuterol sulfate) 2 puffs inhalation Q6H PRN 30 days NS Tobacco use date assessed: 12/07/23 Dental Screening Dental Screen Date: 12/07/23 HPI follow up swollen lips and nose possible infection HPI Details 38-year-old female with past medical his tory of asthma and migraines last seen by Dr. Ryan coming in for acute problem.? In review of the notes, patient was seen in urgent care due to swollen lips and nose with the possibility of infection in his here for follow up on this concern. Patient was seen in urgent care for the second time this year for right sided swollen and painful lymph node. She was having severe pain and swelling of the anterior cervical lymph nodes with difficulty and painful swallowing. Tested negative for mono and strep. This is her second occurrence this year with the last being July 2023. The swelling has significantly improved however still having tenderness to palpation. She was advised by the provider at urgent care to have imaging of this area. She does still have a cough as well. [facility] Medical History Heavy menstrual bleeding Smoker Overweight Abdominal gas pain Mild asthma Hyperhidrosis Surgical History No pertinent past surgical history Family History Mother Diabetes Stroke Father Thyroid disease Social History Housing: Apartment Alcohol intake: never Patient Tobacco Use Status: Current everyday Tobacco user Tobacco use type: Cigarette Cigarettes Per Day: 7 e-Cigarette/Vaping Use: Never Used Second Hand Smoke Exposure: No service: No Current occupational status: employed Current occupational exposures/hazards: No Cognitive needs: No Hearing needs: No Vision needs: No Female Reproductive History Menstrual Age of Menarche: 13 Questionnaire Thrive Questionnaire Date Thrive assessed: 12/07/23 Are you currently unemployed and looking for a job?: No AUDIT C Alcohol Use Questionnaire (AUDIT-C) 1. How often do you have a drink containing alcohol?: Never 3. How often do you have six or more drinks on one occasion?: Never Total Score: 0 GELA-7 AMB Questionnaire GELA-7 Date GELA - 7 assessed: 12/07/23 Source: Developed by Drs. Som Simmons, Carmen Tran, Amrit Nichole and colleagues, with an educational leia from [employer] Review of Systems Const Denies body aches, Denies chills and Denies fever(s) Eyes Reports no additional complaints ENT Denies dysphagia, Denies dizziness and Denies odynophagia Card Denies chest pain, Denies lightheadedness and Denies dyspnea Resp Reports cough (Mild- Primarily at night), Denies hemoptysis and Denies dyspnea GI Denies dysphagia and Denies odynophagia Reports no additional complaints Musc Reports no additional complaints and Denies abnormal gait Skin/Breast Reports system reviewed and no additional complaints, except as documented Neuro Denies abnormal gait and Denies dizziness Psych Reports no additional complaints Physical exam (Primary Care) Vital Signs: Last Vital Signs Pulse 90 03/04/24 09:48 BP 118/68 03/04/24 09:48 Pulse Ox 98 03/04/24 09:48 Oxygen Delivery Method Room Air 03/04/24 09:48 BMI result Body Mass Index 29.9 Tobacco/Smoking Status: Tobacco use Status Tobacco use date assessed 12/07/23 03/04/24 09:52 Patient Tobacco Use Status Current everyday Tobacco 03/04/24 09:52 Tobacco use type Cigarette 03/04/24 09:52 e-Cigarette/Vaping Use Never Used 03/04/24 09:52 Thrive Assessment: Date of Thrive Assessment Date Thrive assessed 12/07/23 03/04/24 09:52 Const General: cooperative, healthy appearing, comfortable and no acute distress Orientation/consciousness: patient oriented x3 [facility] Head: Yes normocephalic Ears: hearing grossly normal bilaterally General nose exam: Normal external nose present Eyes General: appearance normal, both eyes and all related structures Conjunctivae: conjunctivae normal Neck Other: Very mild lymphadenopathy of right anterior cervical lymph nodes with tenderness to palpation. No lymphadenopathy or tenderness of left side. Neck: Yes full ROM Resp Effort & Inspection: normal respiratory effort Auscultation: clear to auscultation bilaterally, no crackles, no rales, no rhonchi and no wheezes Cardio Rate: regular rate Rhythm: regular rhythm Skin General skin exam: no rashes or lesions noted Neuro General: patient oriented x3 Gait exam (Neuro): Normal gait present Extrem General: Yes normal to inspection, Yes full ROM and No edema Psych Affect: normal affect Attitude: cooperative Insight: Good insight present (Psych) Judgement: Good judgement present (Psych) Coding Level of Care Code Est Pt Level 3 (18506) Diagnoses Swelling, lymph nodes R59.9 Assessment & Plan Assessment & Plan (1) Swelling, lymph nodes: Code(s): R59.9 - Enlarged lymph nodes, unspecified Category: Medical Plan: Still having tenderness to palpation of right anterior cervical lymph nodes. Discussed that this is most likely a result of a viral infection on both occasions however given the recurrence we will order for ultrasound to rule out underlying structural abnormality or other abnormality continue to monitor symptoms and follow up as needed for this concern. Blood work completed 02/21/2024 within normal limits. Plan This note was constructed using voice recognition software. While every effort has been made to ensure accuracy and cna ltc, still areas may have been included sometimes these areas may affect the content or meeting of the given symptoms. Total time spent caring for the patient today was 20 minutes. This includes time spent before the visit reviewing the chart, time spent during the visit, and time spent after the visit and documentation.
== END 2024-03-04 10:25 | disposition home or self-care (01) ==
PROVIDERS: PCP Internal Medicine
DX: R59.9 Enlarged lymph nodes, unspecified (principal)

== ENCOUNTER → 2024-03-04 09:47 | Outpatient (BNVA) | payer OTHER, SELFPAY | PROVIDERS: PCP Internal Medicine | DX: R59.9 Enlarged lymph nodes, unspecified (principal) | CPT/HCPCS: 99212 ==

== ENCOUNTER 2024-06-05 12:50 | Outpatient (AMB) | payer OTHER, SELFPAY ==
--- NOTE | 2024-06-05 13:02 | MHC.OFFVIS ---
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 Doing well with pizza driver concerns: External bumps that come and go and are tender, started using dial soap and it is somewhat improved. Regular monthly menses. Currently is sexually active w/same sex partner. She denies vaginal itching and irritation. STI screening offered; she declines. She tries to eat healthy and stays active with exercise. Denies family history of breast, ovarian or colon cancer. Last pap smear 2023, negative. Tobacco use, considering quitting. [facility], [facility] Medical History Heavy menstrual bleeding Smoker Overweight Abdominal gas pain Mild asthma Hyperhidrosis Surgical History No pertinent past surgical history Family History Mother Diabetes Stroke Father Thyroid disease Social History Housing: Apartment Alcohol intake: never Patient Tobacco Use Status: Current everyday Tobacco user Tobacco use type: Cigarette Cigarettes Per Day: 7 e-Cigarette/Vaping Use: Never Used Second Hand Smoke Exposure: No service: No Current occupational status: employed Current occupational exposures/hazards: No Cognitive needs: No Hearing needs: No Vision needs: No Female Reproductive History Menstrual Age of Menarche: 13 Total pregnancies: 2 Full term: 2 Date of last pap smear: 08/03/23 (negative pap, negative hpv) Review of Systems Const All systems reviewed & are unremarkable except as noted in HPI and below Reports as per HPI Eyes Reports no additional complaints ENT Reports no additional complaints Card Reports no additional complaints Resp Reports no additional complaints GI Reports as per HPI and Reports no additional complaints Reports as per HPI Musc Reports no additional complaints Skin/Breast Reports as per HPI Neuro Reports no additional complaints Psych Reports no additional complaints Endo Reports no additional complaints Paul/Lymph Reports no additional complaints Aller/Immun Reports no additional complaints Physical Exam Vital Signs: Last Vital Signs BP 108/68 06/05/24 13:14 BMI result Body Mass Index 29.2 Const General: cooperative, healthy appearing, no acute distress, well developed and alert Orientation/consciousness: patient oriented x3 HEENT Head: Yes normal to inspection Eyes General: appearance normal, both eyes and all related structures Neck Neck: Yes normal visual inspection Thyroid: Thyroid normal Chest Chest palpation & inspection: normal inspection of the chest and other (no puckering, dimpling, peau de orange, retraction, discharge, masses) Breast/axilla inspection: normal inspection of the breasts Breast/axilla palpation: normal palpation of the breasts Resp Effort & Inspection: normal respiratory effort GI Inspection: Yes normal to inspection Palpation (GI): Soft to palpation Rectal Exam - Female: deferred Other: External vulva shaven with several scattered pinpoint size pustules at the skin surface of the hair follicle General: Yes bladder normal to palpation External Female Exam: normal external appearance and normal appearance of the urethra Speculum Exam - Vagina: normal appearance of the vagina, normal palpation and normal vaginal discharge Speculum Exam - Cervix: normal appearance of the cervix and normal palpation Bimanual exam- vagina & uterus: normal bimanual exam, normal palpation, uterine size normal, bladder normal to palpation, normal palpation and non-tender Bimanual Exam- Adnexa, other: no masses Skin General skin exam: no rashes or lesions noted Rashes: no rashes Neuro General: patient oriented x3 Cognition (Neuro): normal cognition Extrem General: Yes normal to inspection Psych Attitude: cooperative Thought process: Normal thought process present Quality Reporting (2019) Adult ([facility] ) Smoking risk assessment performed?: Yes Patient Tobacco Use Status: Current everyday Tobacco user Assessment & Plan Assessment & Plan (1) Encounter for well woman exam with routine gynecological exam: Code(s): Z01.419 - Encounter for gynecological examination (general) (routine) without abnormal findings Category: Medical (2) Vulvar irritation: Code(s): N90.89 - Other specified noninflammatory disorders of vulva and perineum (3) Tobacco use: Code(s): Z72.0 - Tobacco use Plan Discussed: Current recommendations for pap smears per ASCCP guidelines. Breast awareness and periodic breast exams. Maintain a healthy lifestyle including a well balanced diet and routine exercise. Continue with dial soap, rinse well, use of cotton underwear and avoid shaving. If no improvement to return to the office for further evaluation. Tobacco cessation and self-help measures for success. Patient verbalizes understanding and agrees to the plan of care. She was given opportunity to ask questions and all questions were answered to the best of my ability. 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 This note is constructed using voice recognition software. While every effort has been made to ensure accuracy, home health manager errors may have been included. Coding Level of Care Code Est Pt Prev Care 18-39y(28935) Diagnoses Encounter for well woman exam with routine gynecological exam Z01.419 Vulvar irritation N90.89 Tobacco use Z72.0
[2024-06-05 13:14] VITALS: BP 108/68; BMI 29.2
== END 2024-06-05 13:51 | disposition home or self-care (01) ==
LOC: HO.HWS 12:50
PROVIDERS: PCP Internal Medicine; Visit Provider Advanced Practice Midwife
DX: Z01.419 Encounter for gynecological examination (general) (routine) without abnormal findings (principal); N90.89 Other specified noninflammatory disorders of vulva and perineum
CPT/HCPCS: 99395; 99459

== ENCOUNTER → 2024-06-05 12:50 | Outpatient (BNVA) | payer OTHER, SELFPAY | PROVIDERS: PCP Internal Medicine; Visit Provider Advanced Practice Midwife | DX: Z01.419 Encounter for gynecological examination (general) (routine) without abnormal findings (principal); N90.89 Other specified noninflammatory disorders of vulva and perineum; F17.210 Nicotine dependence, cigarettes, uncomplicated | CPT/HCPCS: 99395; 99459 ==

== ENCOUNTER 2024-12-11 08:15 | Outpatient (AMB) | payer OTHER, SELFPAY ==
[2024-12-11 08:38] VITALS: BP 112/70; BMI 29.4
--- NOTE | 2024-12-11 08:38 | A.OFFPC_ITS ---
Vital Signs 12/11/24 08:38 Height 5 ft 6 in Weight 182 lb BMI 29.4 BP 112/70 Blood Pressure Location Lt brachial Position Sitting Intake Visit Reasons: annual exam PHQ-9 needed. 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 Accompanied by: Self / Same As Patient Allergies No Known Allergies (No Known Allergies*) Allergy (Verified 12/11/24 08:57) Medication List - Last Reconciled 12/11/24 by Cassie Ge MD ibuprofen 800 mg PO Q8H PRN 30 days mometasone 50 mcg/actuation (Asmanex HFA) 2 puffs inhalation BID 30 days Ventolin HFA 90 mcg/actuation (albuterol sulfate) 2 puffs inhalation Q6H PRN 30 days NS Tobacco use date assessed: 12/11/24 Dental Screening Dental Screen Date: 12/11/24 Did you have a dental visit in the last 12 months?: Yes Did you have a dental problem in the last 6 months where you did not have access to dental care?: No Was dental information given to patient?: Patient has dentist HPI HPI Comments History of Present Illness Details The patient is a 39-year-old female presenting for an annual physical examination and evaluation of foot pain. The patient reports experiencing foot pain that has been persistent and is affecting her job performance. She has tried various types of footwear without relief, and the pain is exacerbated by standing and walking. The pain slightly diminishes with rest. The patient has a history of tobacco use, smoking approximately seven cigarettes per day. She has attempted to quit smoking using nicotine patches but was unsuccessful. She expresses a desire to quit smoking and has been advised to explore resources such as [employer]. Preventative care measures include a normal Pap smear in 2023 and a Tdap vaccination in 2022. Routine blood work conducted in February showed normal results for cholesterol, glucose, kidney function, and complete blood count. - Pap smear in 2023: Normal, HPV negativ e - Tdap vaccination in 2022: Up to date - Blood work in February: Normal results for cholesterol, glucose, kidney function, and CBC [facility] Medical History (Updated 12/11/24 @ 09:06 by Cassie Ge MD) Heavy menstrual bleeding Smoker Overweight Abdominal gas pain Mild asthma Hyperhidrosis Surgical History No pertinent past surgical history Family History Mother Diabetes Stroke Father Thyroid disease Social History Housing: Apartment Alcohol intake: never Patient Tobacco Use Status: Current everyday Tobacco user Tobacco use type: Cigarette Cigarettes Per Day: 7 e-Cigarette/Vaping Use: Never Used Second Hand Smoke Exposure: No service: No Current occupational status: employed Current occupational exposures/hazards: No Cognitive needs: No Hearing needs: No Vision needs: No Female Reproductive History Menstrual Age of Menarche: 13 Questionnaire PHQ-9 Over the last 2 weeks, how often have you been bothered by any of the following problems? 1. Little interest or pleasure in doing things: not at all 2. Feeling down, depressed, or hopeless: not at all 3. Trouble falling or staying asleep, or sleeping too much: several days 4. Feeling tired or having little energy: several days 5. Poor appetite or overeating: not at all 6. Feeling bad about yourself - or that you are a failure or have let yourself or your family down: not at all 7. Trouble concentrating on things, such as reading the newspaper or watching television: not at all 8. Moving or speaking so slowly that other people could have noticed. Or the opposite - being so fidgety or restless that you have been moving around a lot more than usual: not at all 9. Thoughts that you would be better off or of hurting yourself in some way: not at all Total score: 2 Depression Screening Interpretation: Negative Depression Screening Done: Yes 10164 - PHQ-9 Billing: Yes Source: Developed by Drs. Som Simmons, Carmen Tran, Amrit Nichole and colleagues, with an educational leia from [employer]. Thrive Questionnaire Date Thrive assessed: 12/11/24 I am a: Patient What is your living situation today?: I have a steady place to live Within the past 12 months, did the food you bought not last and you didn't have the money to get more?: Never true Within the past 12 months, did you worry whether your food would run out before you got money to buy more?: Never true Do you have trouble paying for medicines?: No Do you have trouble getting transportation to medical appointments?: No Do you have trouble paying your heating and electricity bill?: No Do you have trouble taking care of your child, family member or friend?: No Do you have trouble with day-to-day activities such as bathing, preparing meals, shopping, managing finances, etc.?: No Are you currently unemployed and looking for a job?: No Are you interested in more education?: No Please select the resources that you would like help with: None Currently or been in a relationship where the following occur: No concerns reported THRIVE Score: 0 AUDIT C Alcohol Use Questionnaire (AUDIT-C) 1. How often do you have a drink containing alcohol?: Never Total Score: 0 Score Reviewed/Action Taken: No GELA-7 AMB Questionnaire GELA-7 Date GELA - 7 assessed: 12/11/24 Feeling nervous, anxious, or on edge: 0 = Not at all Not being able to stop or control worryin = Not at all Worrying too much about different things: 1 = Several days Trouble relaxin = Several days Being so restless that it is hard to sit still: 0 = Not at all Becoming easily annoyed or irritable: 1 = Several days Feeling afraid as if something awful might happen: 0 = Not at all Total GELA-7 score (0-4 normal; 5-9 mild; 10-14 moderate; 15-21 severe): 3 Source: Developed by Drs. Som Simmons, Carmen Tran, Amrit Nichole and colleagues, with an educational leia from [employer]. GELA-7 Assessment Billing GELA-7 Assessment Tool: GELA-7 Assessment 70009 Review of Systems Const All systems reviewed & are unremarkable except as noted in HPI and below Card Denies chest pain at rest, Denies chest pain with activity, Denies edema, Denies irregular heart rhythm, Denies claudication, Denies dyspnea, Denies dyspnea on exertion, Denies orthopnea, Denies paroxysmal nocturnal dyspnea and Denies slow heart rate Resp Denies cough, Denies dyspnea and Denies dyspnea on exertion GI Denies abdominal pain, Denies change in bowel habits, Denies excessive flatus, Denies nausea and Denies vomiting Neuro Denies behavioral changes, Denies confusion and Denies lack of coordination Psych Denies behavioral changes and Denies confusion Physical exam (Primary Care) Vital Signs: Last Vital Signs BP 112/70 12/11/24 08:38 BMI result Body Mass Index 29.4 Tobacco/Smoking Status: Tobacco use Status Tobacco use date assessed 12/11/24 12/11/24 08:44 Patient Tobacco Use Status Current everyday Tobacco 12/11/24 08:43 Tobacco use type Cigarette 12/11/24 08:43 e-Cigarette/Vaping Use Never Used 12/11/24 08:43 Are you ready to quit: Yes Tobacco cessation counseling provided: Yes Items discussed: Nicotine replacement and [employer] Relapse Prevention: discussed the importance of a supportive environment, discussed extending NRT, discussed negative mood or depression after quitting, weight gain after smoking is common and discussed dietary, exercise and/or lifestyle changes Number of minutes spent counselin CPT code: 77774 - 4-10 Minutes PHQ-9: PHQ-9 Score PHQ-9: Total score 2 12/11/24 08:44 Depression Screening Interpretation: Negative Thrive Assessment: Date of Thrive Assessment Date Thrive assessed 12/11/24 12/11/24 08:43 Currently or been in a relationship where the following occur: No concerns reported Const General: No confusion Orientation/consciousness: patient oriented x3 and No confusion HENMT Head: Yes normal to inspection, Yes normocephalic and Yes atraumatic Ears: external ears normal Eyes General: appearance normal, both eyes and all related structures Eyelids: Yes eyelids normal Conjunctivae: conjunctivae normal Neck Neck: Yes normal visual inspection and Yes supple Resp Effort & Inspection: normal respiratory effort Auscultation: clear to auscultation bilaterally Cardio Jugular venous distension: no JVD Rate: regular rate Rhythm: regular rhythm Heart sounds: S1 normal heart sound present and S2 normal heart sound present GI Inspection: Yes normal to inspection Palpation (GI): Soft to palpation and nontender Auscultation: normal bowel sounds Skin General skin exam: no rashes or lesions noted Neuro General: patient oriented x3, no focal motor deficits and No confusion Extrem General: Yes full ROM Psych Appearance: grossly normal Coding Level of Care Code Est Pt Level 3 (19143) Est Pt Prev Care 18-39y(63198) Diagnoses Encounter for physical examination Z00.00 Pain in both feet M79.671; M79.672 Additional Codes PHQ-9 - 94983 - PHQ-9 Billing: Yes ([id number]) GELA-7 Assessment Billing - GELA-7 Assessment Tool: GELA-7 Assessment 08781 ([id number]) Vital Signs *Quality* - CPT code: 52210 - 4-10 Minutes ([id number]) Time Spent (min) 35 Assessment & Plan Assessment & Plan (1) Encounter for physical examination: Comment: Due for pap, she will call [facility] [place] for a f/u Due for eye exam Code(s): Z00.00 - Encounter for general adult medical examination without abnormal findings Category: Medical (2) Pain in both feet: Code(s): M79.671 - Pain in right foot; M79.672 - Pain in left foot Category: Medical Plan The patient will be referred to a insurance investigator for further evaluation of her persistent foot pain, which has not improved with changes in footwear and is affecting her job performance. For tobacco cessation, the patient is encouraged to explore resources such as [employer] and continue efforts to quit smoking, given her readiness to stop and previous unsuccessful attempts with nicotine patches. Preventative care measures are up to date, including a normal Pap smear in 2023 and a Tdap vaccination in 2022. Patient was informed and verbally consented to the use of an ambient scribe for clinic note documentation during this visit. Orders: Referrals Podiatry Referral M79.671 - Pain in right foot, M79.672 - Pain in left foot
== END 2024-12-11 09:09 | disposition home or self-care (01) ==
LOC: HO.HMCH 08:16
PROVIDERS: PCP Internal Medicine; Visit Provider Internal Medicine
DX: Z00.00 Encounter for general adult medical examination without abnormal findings (principal); M79.671 Pain in right foot; M79.672 Pain in left foot; F17.210 Nicotine dependence, cigarettes, uncomplicated

== ENCOUNTER → 2024-12-11 08:15 | Outpatient (BNVA) | payer OTHER, SELFPAY | PROVIDERS: PCP Internal Medicine; Visit Provider Internal Medicine | DX: Z00.00 Encounter for general adult medical examination without abnormal findings (principal); M79.671 Pain in right foot; M79.672 Pain in left foot; F17.210 Nicotine dependence, cigarettes, uncomplicated | CPT/HCPCS: 96127; 99212; 99395 ==

== ENCOUNTER 2025-01-27 08:44 | Outpatient (AMB) | payer OTHER, SELFPAY ==
[2025-01-27 08:48] VITALS: BMI 29.0
--- NOTE | 2025-01-27 08:48 | A.OFFVIS_ITS ---
Vital Signs 3 01/27/25 08:48 Height 5 ft 6 in Weight 180 lb BMI 29.0 Intake Visit Reasons: New Pt- bilateral foot pain Intake Note: Buffy is a 39 year old female who presents today as anew patient for an evaluation of bilateral foot pain. Patient mentions she has tried various types of footwear and provided no relief. She mentions she has tried Motrin and Tylenol for the pain as well which did not help with the pain. Patient reports pain is worse while walking and standing and still feels the pain while at rest.. Allergies No Known Allergies (No Known Allergies*) Allergy (Verified 01/27/25 08:48) Medication List - Last Reconciled 01/27/25 by Viv Barros DPM ibuprofen 800 mg PO Q8H PRN 30 days methylprednisolone (Medrol (Venkata)) PO PER PKG DIR mometasone 50 mcg/actuation (Asmanex HFA) 2 puffs inhalation BID 30 days Ventolin HFA 90 mcg/actuation (albuterol sulfate) 2 puffs inhalation Q6H PRN 30 days NS HPI Comments Details: Patient is a 39-year-old female with a past medical history as seen below who presents to the office today for bilateral foot pain. She states she has been experiencing the pain with tingling for more than a few months and states that it ranges from a 7 to 8/10 with tingling noted. She states she experiences pain to bilateral heels. She experiences cramping such as a Charley horse to the calves as well as the toes. She states activity in ambulating worsens the pain and states she still experiences pain intermittently while at rest. Patient states she notices the pain during the 1st steps in the morning and when walking after resting. She states she has tried Tylenol and Motrin with no relief. Denies any inciting injuries. Patient also states she experiences some pain to bilateral 2nd toes due to her hammertoes. Patient also inquired about at home nail care at this time. Denies any other pedal concerns. Denies any nausea or vomiting fever or chills. Patient was seen wearing sneakers. [facility] Medical History (Updated 01/27/25 @ 09:20 by Viv Barros DPM) Pes planus of both feet Foot pain, bilateral Calcaneal spur of both feet Plantar fasciitis Heavy menstrual bleeding Smoker Overweight Abdominal gas pain Mild asthma Hyperhidrosis Surgical History No pertinent past surgical history Family History Mother Diabetes Stroke Father Thyroid disease Social History Housing: Apartment Alcohol intake: never Patient Tobacco Use Status: Current everyday Tobacco user Tobacco use type: Cigarette Cigarettes Per Day: 7 e-Cigarette/Vaping Use: Never Used Second Hand Smoke Exposure: No service: No Current occupational status: employed Current occupational exposures/hazards: No Cognitive needs: No Hearing needs: No Vision needs: No Female Reproductive History Menstrual Age of Menarche: 13 Review of Systems Const All systems reviewed & are unremarkable except as noted in HPI and below Physical Exam Vital Signs: BMI result Body Mass Index 29.0 Extrem Other: Bilateral lower extremity focused physical exam: Derm: No open lesions abrasions or wounds noted. No erythema or edema noted. Skin turgor supple and intact. No clinical signs of infection. Toenails noted to be within normal limits except for mild incurvation noted to the lateral aspect of the right hallucal nail. Vascular: DP/PT pulses palpable. Capillary refill time less than 3 seconds. No varicosities noted. Neuro: Protective sensation is grossly intact. Musculoskeletal: Pain on palpation to bilateral heels at the plantar central aspect of the calcaneus. Range of motion of the forefoot and hindfoot within normal limits. Muscle manual testing 5/5. Hammertoe deformities noted to the 2nd toes bilaterally. No pain on palpation to the 2nd toes bilaterally. Ambulation within normal limits. Pes planus noted Bilaterally. Ankle/foot/toe images: 2 1. 2. Results Reviewed Results Reviewed: Ordered B/L 3 views weightbearing foot xrays to be performed prior to next appointment: Patient to have xrays done at [facility]. Assessment & Plan Assessment & Plan (1) Plantar fasciitis: Code(s): M72.2 - Plantar fascial fibromatosis Category: Medical (2) Calcaneal spur of both feet: Code(s): M77.31 - Calcaneal spur, right foot; M77.32 - Calcaneal spur, left foot Category: Medical (3) Foot pain, bilateral: Code(s): M79.671 - Pain in right foot; M79.672 - Pain in left foot Category: Medical (4) Primary focal hyperhidrosis of soles: Code(s): L74.513 - Primary focal hyperhidrosis, soles (5) Hammer toe of second toe of right foot: Code(s): M20.41 - Other hammer toe(s) (acquired), right foot (6) Hammer toe of second toe of left foot: Code(s): M20.42 - Other hammer toe(s) (acquired), left foot (7) Pes planus of both feet: Code(s): M21.41 - Flat foot [pes planus] (acquired), right foot; M21.42 - Flat foot [pes planus] (acquired), left foot Category: Medical Plan Discussed with patient diagnosis of plantar fasciitis, pes planus, and hammertoe deformities. Discussed conservative and surgical treatment options. Recommend conservative treatment at this time. Ordered bilateral foot x-rays three views weightbearing to be performed prior to next appointment. Advised patient to continue to wear supportive shoe gear and avoid barefoot walking. Recommended patient obtain [id number] inserts, Super feet green color for pes planus deformity. Provided patient with plantar fasciitis exercise information form and instructed the patient on how to perform exercises. Prescribed patient Medrol Dosepak to be taken as directed for pain. Patient is to return to the office in 2 weeks. If pain persists or worsens we will consider night splint, physical therapy, and/or injection. Orders: Orders 2 XR Foot Randy 3V Today M72.2 - Plantar fascial fibromatosis, M77.31 - Calcaneal spur, right foot, M77.32 - Calcaneal spur, left foot, M79.671 - Pain in right foot, M79.672 - Pain in left foot Medications: New 2 methylprednisolone (Medrol (Venkata)) PO PER PKG DIR 21 ea 0RF Plantar fasciitis L74.513 - Primary focal hyperhidrosis, soles, M20.41 - Other hammer toe(s) (acquired), right foot, M20.42 - Other hammer toe(s) (acquired), left foot, M72.2 - Plantar fascial fibromatosis, M77.31 - Calcaneal spur, right foot, M77.32 - Calcaneal spur, left foot, M79.671 - Pain in right foot, M79.672 - Pain in left foot Coding Level of Care Code New Pt Level 4 (17047) Diagnoses Plantar fasciitis M72.2 Calcaneal spur of both feet M77.31; M77.32 Foot pain, bilateral M79.671; M79.672 Primary focal hyperhidrosis of soles L74.513 Hammer toe of second toe of right foot M20.41 Hammer toe of second toe of left foot M20.42 Pes planus of both feet M21.41; M21.42 Time Spent (min) 45
== END 2025-01-27 09:15 | disposition home or self-care (01) ==
LOC: HO.HPODS 08:45
PROVIDERS: PCP Internal Medicine; Visit Provider Student in an Organized Health Care Education/Training Program
DX: M72.2 Plantar fascial fibromatosis (principal); M77.31 Calcaneal spur, right foot; M77.32 Calcaneal spur, left foot; M79.671 Pain in right foot; M79.672 Pain in left foot; L74.513 Primary focal hyperhidrosis, soles; M20.41 Other hammer toe(s) (acquired), right foot; M20.42 Other hammer toe(s) (acquired), left foot; M21.41 Flat foot [pes planus] (acquired), right foot; M21.42 Flat foot [pes planus] (acquired), left foot
CPT/HCPCS: 99204

== ENCOUNTER → 2025-01-27 08:44 | Outpatient (BNVA) | payer OTHER, SELFPAY | PROVIDERS: PCP Internal Medicine; Visit Provider Student in an Organized Health Care Education/Training Program | DX: M72.2 Plantar fascial fibromatosis (principal); M77.31 Calcaneal spur, right foot; M77.32 Calcaneal spur, left foot; M79.672 Pain in left foot; M79.671 Pain in right foot; M20.42 Other hammer toe(s) (acquired), left foot; M20.41 Other hammer toe(s) (acquired), right foot; L74.513 Primary focal hyperhidrosis, soles | CPT/HCPCS: 99202 ==

== ENCOUNTER 2025-03-05 14:27 | Outpatient (REF) | payer OTHER, SELFPAY ==
--- NOTE | ~2025-03-05 | XR_ITS ---
EXAMINATION: X-ray bilateral feet CLINICAL INFORMATION: Pain COMPARISON: None TECHNIQUE: Right foot 3 views. Left foot 3 views. FINDINGS: Right foot: Osseous mineralization is normal. No evidence of acute fracture or dislocation. No significant joint space narrowing or marginal osteophytes. No osseous erosion. No abnormal soft tissue calcification. Left foot: Osseous mineralization is normal. No evidence of acute fracture or dislocation. No significant joint space narrowing or marginal osteophytes. No osseous erosion. No abnormal soft tissue calcification. XR/XR Foot Randy 3V IMPRESSION: No radiographic evidence of acute osseous findings. Electronically signed by: Jose Patel MD 03/05/2025 03:50 PM EDT
== END 2025-03-05 14:28 | disposition home or self-care (01) ==
LOC: HO.XRAY 14:27
PROVIDERS: PCP Internal Medicine; Visit Provider Student in an Organized Health Care Education/Training Program
DX: M79.671 Pain in right foot (principal); M79.672 Pain in left foot; M77.31 Calcaneal spur, right foot; M77.32 Calcaneal spur, left foot; M72.2 Plantar fascial fibromatosis
CPT/HCPCS: 73630

== ENCOUNTER → 2025-03-05 14:32 | Outpatient (BNV) | payer OTHER, SELFPAY | PROVIDERS: PCP Internal Medicine; Visit Provider Radiology Diagnostic Ultrasound | DX: M79.671 Pain in right foot (principal); M79.672 Pain in left foot | CPT/HCPCS: 73630 ==

== ENCOUNTER 2025-03-20 09:55 | Outpatient (AMB) | payer OTHER, SELFPAY ==
--- NOTE | 2025-03-20 10:15 | MHC.OFFVIS ---
Intake Visit Reasons: Follow Up bilateral foot pain Intake Note: Buffy is a 39 year old female who presents today for a follow up on her calcaneal spurs. At her last visit we recommended shoe inserts and prescribed Medrol dose janett. Patient reports she has not taken the medication and she has purchased the shoe inserts and finds that she is still adjusting to them due to it becoming uncomfortable to wear. She states the pain has improved slightly only in the mornings. Allergies No Known Allergies (No Known Allergies*) Allergy (Verified 01/27/25 08:48) HPI Comments Details: The patient is a 39-year-old female presenting for a follow up of B/L plantar fasciitis and hammertoes to the right foot toes 2-5. The plantar fasciitis has been causing soreness, particularly noticeable when wearing shoes with inserts initially, but she states as she has continued to wear the inserts, her symptoms have gradually improved. She rates the pain as a 2-3/10. The patient has been taking ibuprofen for pain management and has been advised to gradually increase the duration of wearing inserts to improve tolerance. The patient also reports concerns about hammer toes, noting that the second toe on the right foot is longer than the first, and the third and fourth toes are more noticeably bent. Patient is a 39-year-old female with a past medical history as seen below who presents to the office today for bilateral foot pain. She states she has been experiencing the pain with tingling for more than a few months and states that it ranges from a 7 to 8/10 with tingling noted. She states she experiences pain to bilateral heels. She experiences cramping such as a Charley horse to the calves as well as the toes. She states activity in ambulating worsens the pain and states she still experiences pain intermittently while at rest. Patient states she notices the pain during the 1st steps in the morning and when walking after resting. She states she has tried Tylenol and Motrin with no relief. Denies any inciting injuries. Patient also states she experiences some pain to bilateral 2nd toes due to her hammertoes. Patient also inquired about at home nail care at this time. Denies any other pedal concerns. Denies any nausea or vomiting fever or chills. Patient was seen wearing sneakers. [facility] Medical History (Updated 03/23/25 @ 13:16 by Viv Barros DPM) Acquired hammertoes of both feet Pes planus of both feet Foot pain, bilateral Calcaneal spur of both feet Plantar fasciitis Heavy menstrual bleeding Smoker Overweight Abdominal gas pain Mild asthma Hyperhidrosis Surgical History No pertinent past surgical history Family History Mother Diabetes Stroke Father Thyroid disease Social History Housing: Apartment Alcohol intake: never Patient Tobacco Use Status: Current everyday Tobacco user Tobacco use type: Cigarette Cigarettes Per Day: 7 e-Cigarette/Vaping Use: Never Used Second Hand Smoke Exposure: No service: No Current occupational status: employed Current occupational exposures/hazards: No Cognitive needs: No Hearing needs: No Vision needs: No Female Reproductive History Menstrual Age of Menarche: 13 Review of Systems Const Details: - Musculoskeletal: Reports mild pain due to plantar fasciitis B/L and painful hammertoes to the right foot. All systems reviewed & are unremarkable except as noted in HPI and below Physical Exam Extrem Other: Bilateral lower extremity focused physical exam: Derm: No open lesions abrasions or wounds noted. No erythema or edema noted. Skin turgor supple and intact. No clinical signs of infection. Toenails noted to be within normal limits except for mild incurvation noted to the lateral aspect of the right hallucal nail. Vascular: DP/PT pulses palpable. Capillary refill time less than 3 seconds. No varicosities noted. Neuro: Protective sensation is grossly intact. Musculoskeletal: Mild pain on palpation to bilateral heels at the plantar central aspect of the calcaneus. Range of motion of the forefoot and hindfoot within normal limits. Muscle manual testing 5/5. Hammertoe deformities noted to digits 2-5, worse to 2nd toes B/L. Mild soreness with ROM of the right forefoot. Ambulation within normal limits. Pes planus noted Bilaterally. Results Reviewed Results Reviewed: Podiatry Read of B/L foot xrays (03/05/25): Right - Hammertoes 2-5 noted. Joint space narrowing of 1st MPJ. Pes planus noted. No acute fractures or dislocations noted. Left - Hammertoes 2-5 noted. Joint space narrowing of 1st MPJ. Pes planus noted. B/L foot xrays (03/05/25): FINDINGS: Right foot: Osseous mineralization is normal. No evidence of acute fracture or dislocation. No significant joint space narrowing or marginal osteophytes. No osseous erosion. No abnormal soft tissue calcification. Left foot: Osseous mineralization is normal. No evidence of acute fracture or dislocation. No significant joint space narrowing or marginal osteophytes. No osseous erosion. No abnormal soft tissue calcification. IMPRESSION: No radiographic evidence of acute osseous findings. Assessment & Plan Assessment & Plan (1) Plantar fasciitis: Code(s): M72.2 - Plantar fascial fibromatosis Category: Medical (2) Foot pain, bilateral: Code(s): M79.671 - Pain in right foot; M79.672 - Pain in left foot Category: Medical (3) Primary focal hyperhidrosis of soles: Code(s): L74.513 - Primary focal hyperhidrosis, soles (4) Pes planus of both feet: Code(s): M21.41 - Flat foot [pes planus] (acquired), right foot; M21.42 - Flat foot [pes planus] (acquired), left foot Category: Medical (5) Acquired hammertoes of both feet: Code(s): M20.41 - Other hammer toe(s) (acquired), right foot; M20.42 - Other hammer toe(s) (acquired), left foot Category: Medical Plan Patient was informed and verbally consented to the use of an ambient scribe for clinic note documentation during this visit. I discussed with the patient the current status of her plantar fasciitis and hammer toes. We reviewed the imaging results, which exhibited hammertoes and joint space narrowing, but no significant concerns. I explained the importance of gradually increasing the use of inserts and the potential need for injections or physical therapy if pain persists. For hammer toes, I recommended starting with conservative measures such as toe sleeves, wider shoes, and inserts, and considering surgery if necessary. We also discussed the potential recovery time and the need for physical therapy post-surgery. - Continue ibuprofen for pain management and gradually increase the duration of wearing inserts to improve tolerance. - Use a night splint to stretch the Achilles tendon and plantar fascia, starting with a few hours and increasing as tolerated. Provided patient with a night splint. - Wear toe sleeves for hammertoe deformities. - Wear shoes with a wide toe box, wear supportive shoe gear, continue wearing inserts, and avoid barefoot walking. - Consider injection and physical therapy if pain persists despite conservative measures. - Consider surgical intervention if conservative measures fail and pain persists. RTC in 3 weeks. Coding Level of Care Code Est Pt Level 4 (21593) Diagnoses Plantar fasciitis M72.2 Foot pain, bilateral M79.671; M79.672 Primary focal hyperhidrosis of soles L74.513 Pes planus of both feet M21.41; M21.42 Acquired hammertoes of both feet M20.41; M20.42 Time Spent (min) 40
== END 2025-03-20 10:42 | disposition home or self-care (01) ==
LOC: HO.HPODS 09:56
PROVIDERS: PCP Internal Medicine; Visit Provider Student in an Organized Health Care Education/Training Program
DX: M72.2 Plantar fascial fibromatosis (principal); M79.671 Pain in right foot; M79.672 Pain in left foot; L74.513 Primary focal hyperhidrosis, soles; M21.41 Flat foot [pes planus] (acquired), right foot; M21.42 Flat foot [pes planus] (acquired), left foot; M20.41 Other hammer toe(s) (acquired), right foot; M20.42 Other hammer toe(s) (acquired), left foot
CPT/HCPCS: 99214

== ENCOUNTER → 2025-03-20 09:55 | Outpatient (BNVA) | payer OTHER, SELFPAY | PROVIDERS: PCP Internal Medicine; Visit Provider Student in an Organized Health Care Education/Training Program | DX: M72.2 Plantar fascial fibromatosis (principal); M79.671 Pain in right foot; M79.672 Pain in left foot; L74.513 Primary focal hyperhidrosis, soles; M21.41 Flat foot [pes planus] (acquired), right foot; M21.42 Flat foot [pes planus] (acquired), left foot; M20.41 Other hammer toe(s) (acquired), right foot; M20.42 Other hammer toe(s) (acquired), left foot | CPT/HCPCS: 99212 ==

== ENCOUNTER 2025-04-11 09:17 | Outpatient (AMB) | payer OTHER, SELFPAY ==
--- NOTE | 2025-04-11 10:05 | MHC.OFFVIS ---
Vital Signs 04/11/25 13:26 Height 5 ft 6 in Weight 180 lb BMI 29.0 Intake Visit Reasons: B/L plantar fasciitis and hammertoes right foot Intake Note: Buffy is a 39 year old female who presents today for a follow up on her bilateral plantar fasciitis. At her last visit she was provided with night splints and advised to wear toe sleeves for her hammertoes, shoes with a wide toe box, supportive shoe gear, continue wearing inserts. Patient reports she experiences horrible night due to night splints giving her restless legs. She has the inserts in her shoes which seem to help. She said she has days that don't bother her with the inserts in her sneakers then she changes to crocs at home then at the end of the night she has pain. Patient has started wearing her sneakers even at home. Allergies No Known Allergies (No Known Allergies*) Allergy (Verified 04/11/25 13:28) HPI Comments Details: The patient is a 39-year-old female presenting for a follow up of B/L plantar fasciitis and hammertoes to the right foot toes 2-5. The patient states the pain has been persistent ranging from a 6-7/10. She states she tried the night splint, but felt it caused her legs to feel restless so she stopped using it. She states she noticed discomfort while wearing Crocs and has recently purchased sandals with an arch support. She denies any new pedal injuries. Denies any other pedal concerns. [facility] Medical History (Updated 04/11/25 @ 09:47 by Viv Barros DPM) Hammertoes of both feet Acquired hammertoes of both feet Pes planus of both feet Foot pain, bilateral Calcaneal spur of both feet Plantar fasciitis Heavy menstrual bleeding Smoker Overweight Abdominal gas pain Mild asthma Hyperhidrosis Surgical History No pertinent past surgical history Family History Mother Diabetes Stroke Father Thyroid disease Social History Housing: Apartment Alcohol intake: never Patient Tobacco Use Status: Current everyday Tobacco user Tobacco use type: Cigarette Cigarettes Per Day: 7 e-Cigarette/Vaping Use: Never Used Second Hand Smoke Exposure: No service: No Current occupational status: employed Current occupational exposures/hazards: No Cognitive needs: No Hearing needs: No Vision needs: No Female Reproductive History Menstrual Age of Menarche: 13 Review of Systems Const Details: - Musculoskeletal: Reports moderate pain due to plantar fasciitis B/L and painful hammertoes to the right foot. All systems reviewed & are unremarkable except as noted in HPI and below Physical Exam Vital Signs: BMI result Body Mass Index 29.0 Extrem Other: Bilateral lower extremity focused physical exam: Derm: No open lesions abrasions or wounds noted. No erythema or edema noted. Skin turgor supple and intact. No clinical signs of infection. Toenails noted to be within normal limits except for mild incurvation noted to the lateral aspect of the right hallucal nail. Vascular: DP/PT pulses palpable. Capillary refill time less than 3 seconds. No varicosities noted. Neuro: Protective sensation is grossly intact. Musculoskeletal: Pain on palpation to bilateral heels at the plantar central aspect of the calcaneus. Range of motion of the forefoot and hindfoot within normal limits. Muscle manual testing 5/5. Hammertoe deformities noted to digits 2-5, worse to 2nd toes B/L. Mild soreness with ROM of the right forefoot. Ambulation within normal limits. Pes planus noted Bilaterally. Results Reviewed Results Reviewed: Podiatry Read of B/L foot xrays (03/05/25): Right - Hammertoes 2-5 noted. Joint space narrowing of 1st MPJ. Pes planus noted. No acute fractures or dislocations noted. Left - Hammertoes 2-5 noted. Joint space narrowing of 1st MPJ. Pes planus noted. B/L foot xrays (03/05/25): FINDINGS: Right foot: Osseous mineralization is normal. No evidence of acute fracture or dislocation. No significant joint space narrowing or marginal osteophytes. No osseous erosion. No abnormal soft tissue calcification. Left foot: Osseous mineralization is normal. No evidence of acute fracture or dislocation. No significant joint space narrowing or marginal osteophytes. No osseous erosion. No abnormal soft tissue calcification. IMPRESSION: No radiographic evidence of acute osseous findings. Assessment & Plan Assessment & Plan (1) Plantar fasciitis: Code(s): M72.2 - Plantar fascial fibromatosis Category: Medical (2) Foot pain, bilateral: Code(s): M79.671 - Pain in right foot; M79.672 - Pain in left foot Category: Medical (3) Primary focal hyperhidrosis of soles: Code(s): L74.513 - Primary focal hyperhidrosis, soles (4) Pes planus of both feet: Code(s): M21.41 - Flat foot [pes planus] (acquired), right foot; M21.42 - Flat foot [pes planus] (acquired), left foot Category: Medical (5) Acquired hammertoes of both feet: Code(s): M20.41 - Other hammer toe(s) (acquired), right foot; M20.42 - Other hammer toe(s) (acquired), left foot Category: Medical Plan Patient was informed and verbally consented to the use of an ambient scribe for clinic note documentation during this visit. I discussed with the patient the management options for her symptoms, including the use of physical therapy and arch support slippers. We also talked about the potential use of cortisone injections if the pain remains severe. I explained the benefits and risks of each treatment option, emphasizing the importance of trying physical therapy first. The patient was advised to follow up in six weeks to assess the effectiveness of the interventions. - Provided patient with PT referral. - Patient refuses cortisone injection at this time. - Continue wearing supportive shoe gear with inserts and avoid barefoot walking. - Continue wearing night splints, patient may wear them while resting instead of while sleeping. - Consider cortisone injection if symptoms persist. - Consider surgical intervention if conservative measures fail and pain persists. RTC in 6 weeks. Orders: Orders PT Evaluation and Treatment 04/11/25 M20.41 - Other hammer toe(s) (acquired), right foot, M20.42 - Other hammer toe(s) (acquired), left foot, M72.2 - Plantar fascial fibromatosis, M77.31 - Calcaneal spur, right foot, M77.32 - Calcaneal spur, left foot, M79.671 - Pain in right foot, M79.672 - Pain in left foot Coding Level of Care Code Est Pt Level 4 (74487) Diagnoses Plantar fasciitis M72.2 Foot pain, bilateral M79.671; M79.672 Primary focal hyperhidrosis of soles L74.513 Pes planus of both feet M21.41; M21.42 Acquired hammertoes of both feet M20.41; M20.42 Time Spent (min) 30
[2025-04-11 13:26] VITALS: BMI 29.0
== END 2025-04-11 09:51 | disposition home or self-care (01) ==
LOC: HO.HPODS 09:18
PROVIDERS: PCP Internal Medicine; Visit Provider Student in an Organized Health Care Education/Training Program
DX: M72.2 Plantar fascial fibromatosis (principal); M79.671 Pain in right foot; M79.672 Pain in left foot; L74.513 Primary focal hyperhidrosis, soles; M21.41 Flat foot [pes planus] (acquired), right foot; M21.42 Flat foot [pes planus] (acquired), left foot; M20.41 Other hammer toe(s) (acquired), right foot; M20.42 Other hammer toe(s) (acquired), left foot
CPT/HCPCS: 99214

== ENCOUNTER → 2025-04-11 09:17 | Outpatient (BNVA) | payer OTHER, SELFPAY | PROVIDERS: PCP Internal Medicine; Visit Provider Student in an Organized Health Care Education/Training Program | DX: M72.2 Plantar fascial fibromatosis (principal); L74.513 Primary focal hyperhidrosis, soles; M21.41 Flat foot [pes planus] (acquired), right foot; M21.42 Flat foot [pes planus] (acquired), left foot; M79.671 Pain in right foot; M79.672 Pain in left foot | CPT/HCPCS: 99212 ==